=== PATIENT | male | born 1945 | race Caucasian/White ===

== ENCOUNTER 2019-07-16 13:17 | Emergency (ER) | payer MEDICARE, OTHER, SELFPAY ==
--- NOTE | ~2019-07-16 | XR_ITS ---
EXAMINATION: XR chest 2V DATE: 07/16/2019 14:51 INDICATION: Generalized weakness TECHNIQUE: AP and lateral views of the chest are obtained. COMPARISON: 08/24/2018 FINDINGS: The lungs are free of acute opacities. There is no pleural effusion or pneumothorax. The ca rdiomediastinal silhouette is normal. There is moderate thoracic spondylosis. There is a neurostimula tor device of the left anterior chest wall with its leads coursing beyond the superior margin of the radiograph. 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 IMPRESSION: 1. No acute cardiopulmonary abnormality. Reviewed, dictated and finalized at location B.
[2019-07-16 13:38] VITALS: BP 180/78; PULSE 75; RESP 15; TEMP 37; O2SAT 98
[2019-07-16 13:53] VITALS: PULSE 68
--- NOTE | 2019-07-16 13:54 | ECG_ITS ---
Measurements Intervals [place] Rate: 61 P: -12 [place]: 145 QRS: 119 QRSD: 90 T: 66 QT: 401 QTc: 406 Interpretive Statements SINUS RHYTHM DELAYED PRECORDIAL R/S TRANSITION BASELINE ARTIFACT- I, II, III, AVR, AVL, AVF, V1-V6 BORDERLINE ECG Electronically Signed On 07-16-2019 14:49:14 CDT by Christopher Valentino D.O.
[2019-07-16 14:06] VITALS: BP 147/83; PULSE 70; RESP 22; O2SAT 98
[2019-07-16 14:39] LABS: Basophils Percent Auto 0.4 % (0.2-1.2); Eosinophils Percent Auto 0.4 % (0-4.4); Hematocrit 43.2 % (42.0-52.0); Hemoglobin 14.2 g/dL (14.0-18.0); Immature Granulocyte Absolute 0.04 K/mm3 (0.00-0.031); Immature Granulocyte Percent A 0.5 % (0-0.5); Lymphocytes Absolute Auto 1.12 K/mm3 (0.9-3.2); Lymphocytes Percent Auto 13.4 % (18.3-44.2); Mean Corpuscular HGB Conc 32.9 g/dl (32-36); Mean Corpuscular Hemoglobin 29.8 pg (26-34); Mean Corpuscular Volume 90.6 fl (80-100); Mean Platelet Volume 10.1 fl (7.4-10.4); Monocytes Absolute Auto 0.5 K/mm3 (0.1-0.6); Monocytes Percent Auto 5.9 % (2.6-8.5); Neutrophils Absolute Auto 6.6 K/mm3 (1.3-6.7); Neutrophils Percent Auto 79.4 % (45.5-73.1); Platelet Count Result 202 k/mm3 (150-375); Red Blood Count 4.77 M/mm3 (4.6-6.20); Red Cell Distribution Width 13.3 % (11.5-14.5); White Blood Count 8.3 K/mm3 (4.5-10.0)
--- NOTE | 2019-07-16 14:47 | ED.GENADULT ---
HPI - General Adult General Chief complaint: Unspecified Stated complaint: ran out of medications Time Seen by Provider: 07/16/19 14:04 Source: patient Mode of arrival: ambulatory Limitations: other (patient with severe hearing impairment) History of Present Illness HPI narrative: This is a 73 year old male that presents to the ER for feeling generally unwell. [facility] and started to feel diaphoretic and not right. Reports he did not think he would be able make it to the [facility]. Reports no other symptoms. Denies fever, chest pain, shortness of breath, abdominal pain, vomiting, or dysuria. Related Data Allergies Allergy/AdvReac Type Severity Reaction Status Date / Time Ickbalv-Fdc-Xot Reductase AdvReac Unknown Muscle Verified 08/24/18 16:02 Inhibitor Spasms Review of Systems Review of Systems: Narrative: CONSTITUTIONAL: Denies fever CARDIOVASCULAR: Denies chest pain RESPIRATORY: Denies cough or dyspnea. GASTROINTESTINAL: Denies abdominal pain, nausea, vomiting GENITOURINARY: Denies dysuria or hematuria. All systems reviewed & are unremarkable except as noted in HPI and below PMFSH Past Medical History Medical History (Updated 07/16/19 @ 16:40 by Ivett Saunders PA-C) History of coronary artery disease History of depression History of diabetes mellitus History of hyperlipidemia History of hypertension History of hypothyroidism History of Parkinson's disease Surgical History Surgical History (Updated 07/16/19 @ 14:58 by Ivett Saunders PA-C) History of tonsillectomy Social History Social History (Updated 07/16/19 @ 14:59 by Ivett Saunders PA-C) Smoking status: Never smoker Exam Narrative: Exam Narrative: GENERAL: Well-appearing, well-nourished, and in no acute distress. HEAD: Normocephalic, atraumatic. EYES: PERRLA and EOMI. ENT: Nares clear, no rhinorrhea or epistaxis. Mucous membranes moist. Oropharynx without tonsillar hypertrophy exudate or other lesions. Bilateral TMs pearly arevalo non-bulging NECK: Supple. No adenopathy or masses. CHEST: Clear to auscultation. No respiratory distress. No wheezes rales or rhonchi HEART: Regular rate and rhythm. No murmur heard. Normal peripheral pulses. ABDOMEN: Soft, nontender, nondistended, normal active bowel sounds. EXTREMITIES: Normal range of motion. No edema. SKIN: Warm, dry, no rash. NEURO: No focal deficits. Alert and oriented x3. PSYCH: Normal mood and affect Course Vital Signs Vital signs: Vital Signs Temperature 98.6 F 07/16/19 13:38 Pulse Rate 75 07/16/19 13:38 Respiratory Rate 15 07/16/19 13:38 Blood Pressure 180/78 H 07/16/19 13:38 Pulse Oximetry 98 07/16/19 13:38 Temperature 98.6 F 07/16/19 13:38 Pulse Rate 100 07/16/19 16:03 Respiratory Rate 24 H 07/16/19 15:35 Blood Pressure 156/89 H 07/16/19 16:03 Pulse Oximetry 97 07/16/19 15:35 Medical Decision Making MDM Narrative Medical decision making narrative: Patient presents the emergency department for medication refill. Reports feeling unwell and sweaty in the car while trying to drive to the [place] to get his medications refilled. Otherwise has no complaints. His vitals are normal other than mild elevation in blood pressure systolic to 140s-150s. Patient is afebrile and nontoxic-appearing. CBC and metabolic panel without acute changes. Troponin is not elevated. EKG without concerning changes. Chest x-ray without acute changes. Patient refused straight cath and was unable to give us a urine sample. I was trying to get a hold of his primary doctor as he did not know what medications he needed refill. Patient does not want to wait for this and would like to leave. He was instructed on the importance of following up with his doctor to get his medicines refilled. Patient was given warnings to return to the ER Vital Signs Vital Signs: Vital Signs Temperature 98.6 F 07/16/19 13:38 Pulse Rate 75 03/
[2019-07-16 14:52] LABS: Alanine Aminotransferase 19 U/L (4-50); Albumin Level 4.3 g/dL (3.5-5.1); Alkaline Phosphatase 83 U/L (38-126); Aspartate Amino Transferase 31 U/L (17-59); Bilirubin,Total 0.4 mg/dL (0.2-1.3); Blood Urea Nitrogen 25 mg/dL (9-20); Calcium 9.2 mg/dL (8.4-10.2); Carbon Dioxide 22 mmol/L (22-30); Chloride 108 mmol/L (98-107); Estimated CRCL calculation 63 ml/min; Estimated Glomerular Filt Rate > 60; Glucose 114 mg/dL (75-110); Potassium 4.1 mmol/L (3.4-5.0); Sodium 138 mmol/L (137-145)
[2019-07-16 15:01] LABS: Prothrombin Time 12.6 Seconds (11.1-14.7)
[2019-07-16 15:02] LABS: Partial Thromboplastin Time 30.5 SECONDS (22.3-36.8)
[2019-07-16 15:03] LABS: Troponin I < 0.012 ng/mL (0.000-0.034)
[2019-07-16 15:35] VITALS: BP 132/82; PULSE 69; RESP 24; O2SAT 97
[2019-07-16 16:03] VITALS: BP 132/82; BP 144/87; BP 156/89; PULSE 100; PULSE 91; PULSE 94
--- NOTE | 2019-07-16 16:06 | PC.NURSE ---
pt unable to void, attempting to see if pt will allow straight cath
== END 2019-07-16 16:49 | disposition home or self-care (01) ==
PROVIDERS: Physician Assistant; Emergency Provider Emergency Medicine
DX: R61 Generalized hyperhidrosis (principal); I25.10 Atherosclerotic heart disease of native coronary artery without angina pectoris; E11.9 Type 2 diabetes mellitus without complications; E78.5 Hyperlipidemia, unspecified; I10 Essential (primary) hypertension; E03.9 Hypothyroidism, unspecified; G20 Parkinson's disease; R94.31 Abnormal electrocardiogram [ECG] [EKG]
CPT/HCPCS: 36415; 71046; 80053; 84484; 85025; 85610; 85730; 93005; 99284

== ENCOUNTER 2019-10-04 14:21 | Inpatient (IN) | payer OTHER, MEDICARE, SELFPAY ==
[2019-10-04] VITALS (16 sets, daily range): BP systolic 78–138; BP diastolic 56–112; PULSE 72–88; RESP 20–32; TEMP 36.3–37; O2SAT 92–100; BMI 32.4
--- NOTE | ~2019-10-04 | XR_ITS ---
EXAMINATION: XR chest 1V portable DATE: 10/04/2019 23:54 INDICATION: Abnormal lung sounds TECHNIQUE: frontal view of the chest was obtained. COMPARISON: Chest radiograph dated 07/16/2019 FINDINGS: Extensive bilateral streaky and patchy airspace opacities with perihilar and lower lung predominance. No pleural effusion or pneumothorax. Cardiomediastinal silhouette is normal. Left ventricular assist device extends cephalad along the aorta with distal tip curled near the apex of the left ventricle. Neurostimulator device projects over the left midlung zone with leads coursing cephalad along the lef t and right sides of the neck. Moderate bilateral glenohumeral osteoarthritis with right rotator cuff tear. IMPRESSION: 1. Bilateral perihilar and inferior predominant lung disease which could represent moderate pulmonary edema, pneumonia or combination thereof. Reviewed, dictated and finalized at location A. IMPRESSION: 1. Bilateral perihilar and inferior predominant lung disease which could repres ent moderate pulmonary edema, pneumonia or combination thereof.
--- NOTE | ~2019-10-04 | XR_ITS ---
EXAMINATION: XR chest 1V portable DATE: 10/06/2019 05:27 INDICATION: Pulmonary edema. TECHNIQUE: A single frontal view of the chest was obtained. COMPARISON: Chest single view 10/05/2019 FINDINGS: There is a diffuse interstitial pattern in the lungs, consistent with pulmonary edema. Ther e is mild atelectasis at left lung base. No pleural effusion or pneumothorax. The heart size is aida l. An electronic device overlies left chest with electrodes coursing into the neck. A surgical clip o verlies the mediastinum. There are old healed left rib fractures. IMPRESSION: 1. Mild pulmonary edema. 2. Mild atelectasis at left lung base. Reviewed, dictated and finalized at location A.
--- NOTE | ~2019-10-04 | XR_ITS ---
EXAMINATION: XR chest 1V portable DATE: 10/05/2019 08:15 INDICATION: Pulmonary edema. TECHNIQUE: A single frontal view of the chest was obtained on 2 radiographs. COMPARISON: Chest single view 10/04/2019 FINDINGS: There is an interstitial pattern in the lungs with interval improvement, consistent with mi ld pulmonary edema. There is mild atelectasis at left lung base. No pleural effusion or pneumothorax. The heart size is normal. There is an electronic device overlying left chest with electrodes coursin g into the neck. A left ventricular assist device is noted. IMPRESSION: 1. Mild pulmonary edema with interval improvement. 2. Mild atelectasis at left lung base. Reviewed, dictated and finalized at location A.
--- NOTE | 2019-10-04 14:21 | ED.CHESTPAIN ---
HPI - Chest Pain General Chief Complaint: Chest Pain Stated Complaint: V TACH History of Present Illness HPI narrative: Patient presents via EMS for chest pain for 1 hour. He was sitting on the toilet when he had upper left chest pain severe. They found him to be in V. Tachycardia, they started an IO in the left lower leg and started amiodarone 150 mg. The patient was hypoxic in the 80s and they started a nonrebreather of oxygen. He arrives with continuing chest pain and shortness of breath. He is very hard of hearing. He is diaphoretic. Related Data Allergies Allergy/AdvReac Type Severity Reaction Status Date / Time Liykyai-Trv-Fme Reductase AdvReac Unknown Muscle Verified 08/24/18 16:02 Inhibitor Spasms Review of Systems Review of Systems: Narrative: Unable to obtain a full review of systems due to his shortness of breath and hard of hearing. [facility] Past Medical History Medical History History of coronary artery disease History of depression History of diabetes mellitus History of hyperlipidemia History of hypertension History of hypothyroidism History of Parkinson's disease Surgical History Surgical History History of tonsillectomy Social History Social History Smoking status: Never smoker Exam Narrative: Exam Narrative: GENERAL: Well-appearing, well-nourished, and in moderate distress. With diaphoresis. Hard of hearing. HEAD: Normocephalic, atraumatic. EYES: PERRLA and EOMI. ENT: Nares clear, no rhinorrhea or epistaxis. Mucous membranes moist. NECK: Supple. CHEST: Clear to auscultation. No respiratory distress. HEART: Regular rate and rhythm. No murmur heard. Normal peripheral pulses. ABDOMEN: Soft, nontender, nondistended, normal active bowel sounds. EXTREMITIES: Normal range of motion. No edema. IO in the left tibia. SKIN: Warm, dry, no rash. NEURO: No focal deficits. Alert and oriented x3. PSYCH: Worried look. Course Consultations Consultation #1: Call Dr. Stovall for acute GA and he returned call quickly. 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 Date: 10/04/19 Time: 14:40 Consultation #2: His sister is here and she reports that he is had an GA before. He has Parkinson's with a stimulator in. He is not on blood thinners. Date: 10/04/19 Time: 14:41 Vital Signs Vital signs: Vital Signs Temperature 98.1 F 10/04/19 14:17 Pulse Rate 86 10/04/19 14:17 Respiratory Rate 32 H 10/04/19 14:17 Blood Pressure 104/69 10/04/19 14:17 Pulse Oximetry 100 10/04/19 14:17 Temperature 98.1 F 10/04/19 14:17 Pulse Rate 88 10/04/19 14:29 Respiratory Rate 32 H 10/04/19 14:17 Blood Pressure 104/69 10/04/19 14:17 Pulse Oximetry 100 10/04/19 14:30 MDM - Chest Pain MDM Narrative Medical decision making narrative: Patient appears to be having an acute GA. EKG confirms ST elevation of 8 mm in the lateral leads. Called a code STEMI. Response was quick and he was taken to the [employer] Technology In[employer]. His blood pressure was low at 76 systolic. Fluids were wide open. Zofran was given before he left but not the morphine. He was accompanied by his sister, and the put in beat adjuster. Differential Diagnosis Differential diagnosis: Likely unstable angina pectoris, atypical chest pain, st elevation myocardial infarction and chest pain Medical Records Data Attestation: I reviewed the patient's medical records. ECG Data EKG #1: Attestation: I personally reviewed and interpreted this ECG as follows: ECG completion date: 10/04/19 ECG completion time: 14:20 Prior ECG tracings: not available for review Ischemic changes: acute STEMI EKG Interpretation: tachycardia, atrial fibrillation and left axis Critical Care Time Critical Care Time Critical Care Time: Yes Total Critical Care Time: 30 Discharge Plan Discharge C
[2019-10-04] MEDS: ONDANSETRON INJ 4 MG/2 ML VIAL IV PUSH ×3 (14:49→23:24)
--- NOTE | 2019-10-04 15:58 | ECG_ITS ---
Measurements Intervals [place] Rate: 83 P: [place]: 0 QRS: 99 QRSD: 129 T: 256 QT: 436 QTc: 514 Interpretive Statements ACCELERATED JUNCTIONAL RHYTHM RIGHT AXIS DEVIATION IVCD, CONSIDER ATYPICAL LBBB MARKED ST DEPRESSION IN ANTEROLAT/INF LEADS, CONSIDER SUBENDOCARDIAL INJURY BASELINE ARTIFACT- I, II, III, AVR, AVL, AVF, V1-V6 ABNORMAL ECG Electronically Signed On 10-04-2019 17:19:37 CDT by Christopher Valentino D.O.
--- NOTE | 2019-10-04 16:26 | WPDCARDPROC ---
Cardiac Cath Procedure Note Date of procedure:: 10/04/19 Performing physician:: David Stovall MD Indication:: Acute myocardial infarction with cardiogenic shock Brief clinical history:: this is a 73-year-old patient 2 became symptomatic with chest pain in his home a short time ago. He apparently collapsed to the floor and 911 was called by a homemaker. He was found to be in sustained ventricular tachycardia was given amiodarone intravenously in the field and brought to the hospital for further evaluation. In the emergency room the patient was found to be having chest pain, he was diaphoretic and hypotensive and had intense ST segment elevation in the anterolateral leads. Procedure Procedure performed:: Emergency coronary angiography emergency revascularization( left main stent) left ventriculography placement of Impella support catheter Sedation/Medication given:: no sedation Access site:: right femoral artery Estimated blood loss:: 50 cc Procedure note:: patient was brought to the cardiac catheterization lab in the emergent setting described above. The right femoral triangle was prepped and draped in the usual fashion. Anesthesia was provided with 1% lidocaine infiltrated locally. Following this a 6 Kyr[place]z vascular sheath was placed. I utilized a 5 [place] FL4 catheter to engage inject the left coronary artery and a 5 [place] JR4 catheter to engage inject the right coronary artery. Following this PCI of the left main coronary artery was recommended and performed as detailed below. Following left main PCI a left ventriculogram was done using an angled pigtail catheter. LV hemodynamics were also documented. After this the decision was made to implant an Impella CP left ventricular assist device because of hemodynamics compatible with cardiogenic shock. The procedure was obviously challenging and very high risk but ultimately successful. He was taken to the ICU in critical condition the Impella catheter in the right femoral artery. The patient was systemically anticoagulated with Angiomax for this intervention. He received aspirin and 180 mg of Brilinta in the emergency room. Findings:: Hemodynamics: Central aortic pressure is 74/40, left ventricle 74 over 10 end-diastolic 32. No systolic gradient across the aortic valve. The left main coronary is long and 99% occluded in its distal aspect. There is trivial, inconsequential flow distal to this into the left coronary artery. The right coronary artery is moderate caliber dominant to the posterior circulation the right coronary artery is not significantly disease there are diffuse luminal plaques but no more than 10-20% stenosis. The left ventricle is dilated and severely hypodynamic. The inferior wall contracts well the remainder of the left ventricle is akinetic and the ejection fraction is 20-25% by visual estimation. There is [id number] MR angiographically. Intervention: The left main coronary coronary was engaged using a 6 Kyr[place] CLS 3.5 guiding catheter. I traversed the occluded left main into the LAD using a 0.014 pilot instructor 150 wire. I then used a 0.014 BMW wire to direct into the circumflex. Over the Manuscripts Curator wire I used the 2.5 mm emerge balloon to balloon dilate the distal left main restoring KEMAL 3 flow in the left coronary artery. At this point it was clear that the left anterior descending and circumflex were essentially non disease this was a discrete distal left main stenosis. I then elected to deploy a stent in this segment using a 3.5 x 15 mm Yamila drug-eluting stent. The circumflex ostium did have some jailing after the stent was deployed I directed the wire through the struts and balloon dilated the circumflex ostium with a 3 x 15 mm emerge balloon. Following this I used a 4.0 x 12 mm noncompliant balloon to perform high-pressure inflations in the left main stent making 2 inflations at 18 atmospheres. At the end of the procedure the left main was widely
[2019-10-04 16:31] LABS: Hematocrit 34.8 % (42.0-52.0); Hemoglobin 10.9 g/dL (14.0-18.0); Mean Corpuscular HGB Conc 31.3 g/dl (32-36); Mean Corpuscular Hemoglobin 30.1 pg (26-34); Mean Corpuscular Volume 96.1 fl (80-100); Mean Platelet Volume 9.9 fl (7.4-10.4); Platelet Count Result 195 k/mm3 (150-375); Red Blood Count 3.62 M/mm3 (4.6-6.20); Red Cell Distribution Width 13.5 % (11.5-14.5); White Blood Count 19.2 K/mm3 (4.5-10.0)
[2019-10-04] MEDS: SODIUM CHLORIDE 0.9% IV 1,000 ML 125 ML IV CONT (16:35)
[2019-10-04 16:49] LABS: Cholesterol 148 mg/dL (0-200); HDL Direct 25 mg/dL; Triglycerides 108 mg/dL (<150)
[2019-10-04 16:52] LABS: Blood Urea Nitrogen 23 mg/dL (9-20); Calcium 5.8 mg/dL (8.4-10.2); Carbon Dioxide 11 mmol/L (22-30); Chloride 116 mmol/L (98-107); Estimated CRCL calculation 77 ml/min; Estimated Glomerular Filt Rate > 60; Glucose 175 mg/dL (75-110); Potassium 2.8 mmol/L (3.4-5.0); Sodium 141 mmol/L (137-145)
--- NOTE | 2019-10-04 16:53 | PM.IMHP ---
H&P: HPI History of Present Illness Chief complaint: AMI with cardiogenic shock Narrative: Mayank Nuno is a 73 year old male a previously unknown to me presenting to the hospital emergency room short time ago from ambulance from home. The patient was in his residence apparently where he was in the restroom and started to experience significant chest pain. He collapsed onto the floor and a homemaker who was in his house found him in that situation and call 911. He was being transported to the hospital for emergency evaluation in the ambulance by report developed sustained ventricular tachycardia. That was treated with intravenous amiodarone. This apparently converted the ventricular tachycardia. In the emergency department he was found to be in distress with chest pain use diaphoretic and hypotensive. His ECG shows a very wide QRS rhythm which is difficult to interpret because of underlying baseline artifact. There was however intense anterolateral ST segment elevation. In this setting acute NE//STEMI protocol was activated and plans are for him to be brought to the cardiac catheterization lab. The patient says he is not known to have any cardiac problems before this. Brief history indicates to me that he has a history of Parkinson's disease and a history of some hypertension. His neurologist to treat his Parkinson's disease is at [facility]. He has a deep brain stimulator for this as well. Remainder of the history was not taken in this emergency situation. Review of Systems Review of Systems: ROS unobtainable: Yes unobtainable due to medical condition PMFSH Past Medical History Medical History History of coronary artery disease History of depression History of diabetes mellitus History of hyperlipidemia History of hypertension History of hypothyroidism History of Parkinson's disease Surgical History Surgical History History of tonsillectomy Social History Social History Smoking status: Never smoker Meds Home Medications and Allergies Allergies Allergy/AdvReac Type Severity Reaction Status Date / Time Nvahchc-Rcg-Chd Reductase AdvReac Unknown Muscle Verified 08/24/18 16:02 Inhibitor Spasms Vital Signs Vital Signs - 24 hr 10/04/19 14:17 10/04/19 14:29 10/04/19 14:30 Temperature 36.7 C Pulse Rate 86 88 Respiratory Rate 32 H Blood Pressure 104/69 Pulse Oximetry 100 100 10/04/19 14:49 Temperature Pulse Rate 88 Respiratory Rate 22 H Blood Pressure 78/56 L Pulse Oximetry 98 Exam Const: General: in distress and uncomfortable HENMT: Mouth: Yes dry mucous membranes Eyes: Sclera: sclerae normal Pupils: Equal, round and reactive pupils present Neck: Neck: supple Thyroid: thyroid normal Other: No obvious carotid bruits Resp: Effort & Inspection: normal respiratory effort Other: Pulmonary rales noted bilaterally Cardio: Rate: regular rate Rhythm: abnormal rhythm irregularly irregular GI: GI Palp: Yes Soft to palpation Auscultation: normal bowel sounds Skin: General skin exam: normal color Neuro: Cognition (Neuro): normal cognition Extrem: Other: No edema distal perfusion is reduced pulses are reduced and lower extremities are cool H&P: Results Labs Labs: Short CBC 10/04/19 Range/Units 16:25 WBC 19.2 H (4.5-10.0) K/mm3 Hgb 10.9 L D (14.0-18.0) g/dL Hct 34.8 L (42.0-52.0) % Plt Count 195 (150-375) k/mm3 BMP 10/04/19 16:25 Sodium 141 Potassium 2.8 L* Chloride 116 H Carbon Dioxide 11 L BUN 23 H Creatinine 0.90 Glucose 175 H Calcium 5.8 L Assessment and Plan Additional Plan 73-year-old man with acute myocardial infarction by ECG showing fairly intense anterolateral ST-elevation no previous known coronary history from what he is telling me. Patient
[2019-10-04 17:00] LABS: LDL Cholesterol Direct 105 mg/dL
[2019-10-04 17:05] LABS: Prothrombin Time > 120.0 Seconds (11.1-14.7)
[2019-10-04 17:07] LABS: Partial Thromboplastin Time > 200.0 SECONDS (22.3-36.8)
[2019-10-04 17:08] LABS: INR > 19.0
--- NOTE | 2019-10-04 17:36 | ADMGEN ---
This patient, Mayank Nuno, was admitted to Intensive Care Unit-11 on 10-04-2019 at 1613. Pt brought directly from manager lab. Patient/family oriented to hospital policies and general routines including ID bracelet, bed and alarms, visiting hours, pain management, procedures, bathroom and other care routines, personal items, smoking policy, room service/diet, and visiting hours. Valuables list has been completed. Information on how to activate the Rapid Response Team has been discussed. Patient/Family are encouraged to report perceived risks to care and to ask questions if they do not understand what they are told or what they should do.
[2019-10-04] MEDS: POTASSIUM CHLORIDE 20 MEQ PACKET (FOR LIQUID) 40 MEQ PO (19:44)
[2019-10-04 20:11] LABS: Partial Thromboplastin Time 69.7 SECONDS (22.3-36.8)
[2019-10-04 20:14] LABS: Magnesium 1.9 mg/dL (1.6-2.3)
[2019-10-04 20:33] LABS: Troponin I > 80.000 ng/mL (0.000-0.034)
[2019-10-04] MEDS: TICAGRELOR 90 MG TABLET PO (21:15)
[2019-10-04 23:28] LABS: Glucose Point of Care 184 (65-105)
[2019-10-04 23:29] LABS: Hemoglobin 14.4 g/dL (14.0-18.0); Mean Corpuscular HGB Conc 32.7 g/dl (32-36); Mean Corpuscular Hemoglobin 30.1 pg (26-34); Mean Corpuscular Volume 92.1 fl (80-100); Mean Platelet Volume 10.1 fl (7.4-10.4); Platelet Count Result 283 k/mm3 (150-375); Red Blood Count 4.78 M/mm3 (4.6-6.20); Red Cell Distribution Width 13.6 % (11.5-14.5); White Blood Count 17.8 K/mm3 (4.5-10.0)
[2019-10-04 23:40] LABS: Partial Thromboplastin Time 32.3 SECONDS (22.3-36.8)
[2019-10-05] VITALS (36 sets, daily range): BP systolic 103–143; BP diastolic 64–113; PULSE 62–88; RESP 18–30; TEMP 36.4–37.5; O2SAT 91–98
[2019-10-05] MEDS: HEPARIN SOD/D5W 100 UNITS/ML 25,000 UNITS/250 ML BAG 6.8 UNITS IV CONT (00:26)
[2019-10-05 00:33] LABS: Blood Urea Nitrogen 37 mg/dL (9-20); Carbon Dioxide 13 mmol/L (22-30); Chloride 109 mmol/L (98-107); Estimated CRCL calculation 36 ml/min; Estimated Glomerular Filt Rate 33; Glucose 196 mg/dL (75-110); Phosphorus 3.8 mg/dL (2.5-4.5); Potassium 7.2 mmol/L (3.4-5.0); Sodium 130 mmol/L (137-145)
[2019-10-05] MEDS: SODIUM BICARBONATE 8.4% 50 MEQ/50 ML VIAL 100 MEQ IV PUSH (01:36)
[2019-10-05] MEDS: FUROSEMIDE INJ 40 MG/4 ML VIAL IV PUSH (01:42)
[2019-10-05] MEDS: INSULIN HUMAN REGULAR (*BKC) 100 UNITS/ML 10 UNITS IV PUSH (01:45)
[2019-10-05] MEDS: DEXTROSE 50% 25 GM/50 ML SYRINGE IV PUSH (01:49)
[2019-10-05] MEDS: ALBUTEROL SULFATE NEB 2.5 MG/0.5 ML INH 10 MG INHALATION (01:52)
[2019-10-05 03:52] LABS: Blood Urea Nitrogen 40 mg/dL (9-20); Calcium 7.9 mg/dL (8.4-10.2); Carbon Dioxide 18 mmol/L (22-30); Chloride 110 mmol/L (98-107); Estimated CRCL calculation 35 ml/min; Estimated Glomerular Filt Rate 31; Glucose 191 mg/dL (75-110); Partial Thromboplastin Time 80.1 SECONDS (22.3-36.8); Sodium 136 mmol/L (137-145)
--- NOTE | 2019-10-05 05:11 | ECG_ITS ---
Measurements Intervals [place] Rate: 82 P: [place]: 0 QRS: -81 QRSD: 129 T: 101 QT: 392 QTc: 459 Interpretive Statements ACCELERATED JUNCTIONAL RHYTHM INCOMPLETE LEFT BUNDLE BRANCH BLOCK LEFT ANTERIOR FASCICULAR BLOCK CANNOT RULE OUT SEPTAL INFARCT, AGE INDETERMINATE ST-T WAVE ABNORMALITY IN HIGH LATERAL LEADS- CONSIDER ISCHEMIA BASELINE ARTIFACT- I, II, III, AVR, AVL, AVF ABNORMAL ECG Electronically Signed On 10-05-2019 10:34:36 CDT by Christopher Valentino D.O.
[2019-10-05 08:08] LABS: Partial Thromboplastin Time 69.4 SECONDS (22.3-36.8)
[2019-10-05] MEDS: TICAGRELOR 90 MG TABLET PO ×2 (08:20→22:11)
[2019-10-05] MEDS: ASPIRIN 81 MG CHEWABLE TABLET PO (08:20)
[2019-10-05 10:52] LABS: Activated Clotting Time 147 sec (74-137)
[2019-10-05] MEDS: LOSARTAN POTASSIUM 12.5 MG TABLET PO (10:56)
--- NOTE | 2019-10-05 11:36 | WPDCNINT ---
Assessment and Plan Assessment and plan (1) Acute NH: Qualifiers: Involved coronary artery: unspecified coronary artery Myocardial infarction type: ST elevation myocardial infarction Qualified Code(s): I21.3 - ST elevation (STEMI) myocardial infarction of unspecified site Code(s): I21.9 - Acute myocardial infarction, unspecified Status: Acute Assessment and Plan: Patient presented with sudden onset chest pain, collapsed in his bathroom, upon EMS arrival was in V-tach, was given amiodarone and brought to the ED where he was found to have anterolateral acute ST-elevation NH status post cardiac catheterization with stent placement to the left main coronary artery, EF 20-25%, LVEDP was elevated -patient was hypotensive, in cardiogenic shock, Impella was inserted. -cardiology following the patient closely and may likely remove the Impella today as patient is much more stable hemodynamically -started on aspirin, losartan, metoprolol, Brilinta (2) Cardiogenic shock: Code(s): R57.0 - Cardiogenic shock Status: Acute Assessment and Plan: With hypotension, diaphoresis with acute anterolateral ST-elevation NH with 99% occlusion of left main coronary artery status post stent placement and Impella insertion. -hemodynamically improved this morning -likely removal of Impella per cardiology (3) Hyperkalemia: Code(s): E87.5 - Hyperkalemia Status: Acute Assessment and Plan: Patient was hyperkalemic overnight, was treated with bicarb, insulin and D50, albuterol nebulizer -potassium levels down to normal this morning -continue to monitor (4) Acute kidney injury: Code(s): N17.9 - Acute kidney failure, unspecified Status: Acute Assessment and Plan: Patient with acute kidney injury could be related to cardiogenic shock, contrast induced nephropathy -received IV fluids, urine output has been adequate -continue to monitor renal function, electrolytes and urine output (5) Pulmonary edema: Qualifiers: Chronicity: acute Qualified Code(s): J81.0 - Acute pulmonary edema Code(s): J81.1 - Chronic pulmonary edema Status: Acute Assessment and Plan: Acute pulmonary edema likely related to ST elevation NH, cardiogenic shock -treated with diuretics -chest x-ray much improved this morning, will continue to monitor (6) Parkinsons disease: Code(s): G20 - Parkinson's disease Status: Acute (7) Hyperlipidemia: Code(s): E78.5 - Hyperlipidemia, unspecified Status: Acute Assessment and Plan: Cardiology will be starting statin (8) Diabetes: Code(s): E11.9 - Type 2 diabetes mellitus without complications Status: Acute Assessment and Plan: Sliding scale insulin with Accu-Cheks Additional Plan Discussed with patient updated him with his condition and plan of care. Code status: Full code Critical care time spent: 43 minutes Due to a high probability of clinically significant, life threatening deterioration, the patient required my highest level of preparedness to intervene emergently and I personally spent this critical care time directly and personally managing the patient. This critical care time included obtaining a history; examining the patient; pulse oximetry; ordering and review of studies; arranging urgent treatment with development of a management plan; evaluation of patient's response to treatment; frequent reassessment; and discussions with other providers. It was exclusive of separately billable procedures and treating other patients and teaching time. Please see Assessment and Plan section and the rest of the note for further information on patient assessment and treatment [employer] Consult Note Consult date: 10/05/19 Time Seen: 07:01 HPI: Mayank Nuno is a 73 year old male with PMH of CAD, DM, hyperlipidemia, HTN, hypothyroidism, H/o Parkinson's disease presented with sudden onset ches
[2019-10-05 11:41] LABS: Activated Clotting Time 147 sec (74-137)
--- NOTE | 2019-10-05 11:42 | P.OPB_ITS ---
Procedure Note - Brief Procedure Note - Brief Date of procedure: 10/05/19 Pre-op diagnosis: AMI with cardiogenic shock Acute coronary syndrome-ST elevation [place] complicated by cardiogenic shock Surgeon: Leon Jones MD Findings: REMOVAL OF PERCUTANEOUS LEFT VENTRICULAR ASSIST DEVICE (IMPELLA) NOTE DATE OF PROCEDURE: 10/05/2019 PROCEDURE PERFORMED: Removal of percutaneous left ventricular assist device- Impella CP (CPT CODE 90117) PROCEDURE NOTE: 73-year-old male with no known prior cardiac history was brought to [facility] yesterday with acute W[place] complicated by cardiogenic shock. He underwent primary PCI/drug-eluting stent placement of occluded left main coronary artery. Percutaneous left ventricular assist device/Impella was placed for hemodynamic support. Patient was admitted to the ICU. Yesterday evening, patient had oozing at the access site which was controlled with positioning of the sheath. Overnight, patient remained hemodynamically stable. Today, patient was chest pain-free and was hemodynamically stable. Decision was made to remove the Impella. PROCEDURE NOTE: Patient's Impella was weaned over time this morning. Systemic heparin was discontinued. Patient's ACT was checked twice, and the last ACT was 147. The sutures were removed, and the Impella catheter was turned off. The catheter was taken out of the LV cavity into the aorta up to the tip of the sheath. The catheter including the sheath was taken out together and manual pressure was used. I personally put the manual pressure for about 12 minutes, and then the nursing staff place the manual pressure for local hemostasis. Patient tolerated the removal of the Impella valve and he remained clinically and hemodynamically stable. PLAN/RECOMMENDATION: Continue to monitor in the ICU on telemetry. Monitor access site. Standard post WY/post PCI medical treatment including dual antiplatelet therapy. Patient has been initiated on low-dose beta-carmela, and ARB. He has history of questionable allergy to statin.
[2019-10-05 12:18] LABS: Glucose Point of Care 173 (65-105)
[2019-10-05 12:18] LABS: Glucose Point of Care 148 (65-105)
[2019-10-05] MEDS: GABAPENTIN 100 MG CAPSULE PO ×2 (14:30→16:21)
[2019-10-05 15:11] LABS: Hematocrit 40.4 % (42.0-52.0); Hemoglobin 13.4 g/dL (14.0-18.0); Mean Corpuscular HGB Conc 33.2 g/dl (32-36); Mean Corpuscular Hemoglobin 30.3 pg (26-34); Mean Corpuscular Volume 91.4 fl (80-100); Mean Platelet Volume 10.2 fl (7.4-10.4); Platelet Count Result 186 k/mm3 (150-375); Red Blood Count 4.42 M/mm3 (4.6-6.20); Red Cell Distribution Width 13.8 % (11.5-14.5); White Blood Count 15.7 K/mm3 (4.5-10.0)
[2019-10-05 16:07] LABS: Magnesium 1.9 mg/dL (1.6-2.3); Potassium 5.3 mmol/L (3.4-5.0)
[2019-10-05] MEDS: ZIPRASIDONE HCL 80 MG PO (16:21)
[2019-10-05 16:27] LABS: Glucose Point of Care 169 (65-105)
[2019-10-05] MEDS: METOPROLOL TARTRATE 6.25 MG TABLET PO (22:12)
[2019-10-05] MEDS: MIRTAZAPINE 7.5 MG TABLET PO (22:13)
[2019-10-05] MEDS: QUEtiapine FUMARATE 25 MG TABLET PO (22:13)
[2019-10-05 22:19] LABS: Glucose Point of Care 114 (65-105)
[2019-10-06] VITALS (17 sets, daily range): BP systolic 100–130; BP diastolic 50–76; PULSE 60–680; RESP 18–32; TEMP 36.6–37.3; O2SAT 91–97
[2019-10-06 04:55] LABS: Basophils Percent Auto 0.2 % (0.2-1.2); Hematocrit 36.5 % (42.0-52.0); Hemoglobin 12.4 g/dL (14.0-18.0); Immature Granulocyte Absolute 0.14 K/mm3 (0.00-0.031); Immature Granulocyte Percent A 0.9 % (0-0.5); Lymphocytes Absolute Auto 0.95 K/mm3 (0.9-3.2); Lymphocytes Percent Auto 5.9 % (18.3-44.2); Mean Corpuscular Hemoglobin 30.5 pg (26-34); Mean Corpuscular Volume 89.7 fl (80-100); Mean Platelet Volume 10.8 fl (7.4-10.4); Monocytes Percent Auto 5.9 % (2.6-8.5); Neutrophils Absolute Auto 13.9 K/mm3 (1.3-6.7); Neutrophils Percent Auto 87.1 % (45.5-73.1); Platelet Count Result 134 k/mm3 (150-375); Red Blood Count 4.07 M/mm3 (4.6-6.20); Red Cell Distribution Width 13.8 % (11.5-14.5)
[2019-10-06 05:09] LABS: Blood Urea Nitrogen 45 mg/dL (9-20); Calcium 8.3 mg/dL (8.4-10.2); Carbon Dioxide 23 mmol/L (22-30); Chloride 104 mmol/L (98-107); Estimated CRCL calculation 40 ml/min; Estimated Glomerular Filt Rate 37; Glucose 124 mg/dL (75-110); Magnesium 1.9 mg/dL (1.6-2.3); Phosphorus 3.6 mg/dL (2.5-4.5); Potassium 4.7 mmol/L (3.4-5.0); Sodium 133 mmol/L (137-145)
[2019-10-06] MEDS: PERFLUTREN LIPID MICROSPHERES 1.5 ML VIAL DILUTED TO 10 ML TOTAL VOLUME IV PUSH (08:06)
[2019-10-06] MEDS: FUROSEMIDE INJ 40 MG/4 ML VIAL 20 MG IV PUSH (08:30)
[2019-10-06] MEDS: ASPIRIN 81 MG CHEWABLE TABLET PO (08:30)
[2019-10-06] MEDS: GABAPENTIN 100 MG CAPSULE PO ×3 (08:30→20:15)
[2019-10-06] MEDS: TICAGRELOR 90 MG TABLET PO ×2 (08:31→20:15)
[2019-10-06] MEDS: ZIPRASIDONE HCL 80 MG PO ×2 (08:31→17:36)
[2019-10-06] MEDS: SERTRALINE HCL 50 MG TABLET 200 MG PO (08:31)
[2019-10-06] MEDS: LOSARTAN POTASSIUM 12.5 MG TABLET PO (08:31)
[2019-10-06] MEDS: METOPROLOL TARTRATE 6.25 MG TABLET PO ×2 (08:31→20:14)
[2019-10-06] MEDS: TOLTERODINE TARTRATE LA 4 MG CAP.ER.24H PO (08:31)
[2019-10-06 08:46] LABS: Glucose Point of Care 115 (65-105)
--- NOTE | 2019-10-06 09:08 | WPDINTPN ---
Progress Note: A&P Assessment and Plan (1) Acute MT: Qualifiers: Involved coronary artery: unspecified coronary artery Myocardial infarction type: ST elevation myocardial infarction Qualified Code(s): I21.3 - ST elevation (STEMI) myocardial infarction of unspecified site Code(s): I21.9 - Acute myocardial infarction, unspecified Status: Acute Assessment and Plan: Patient presented with sudden onset chest pain, collapsed in his bathroom, upon EMS arrival was in V-tach, was given amiodarone and brought to the ED where he was found to have anterolateral acute ST-elevation MT status post cardiac catheterization with stent placement to the left main coronary artery, EF 20-25%, LVEDP was elevated. patient was hypotensive, in cardiogenic shock, Impella was inserted. - IMPELLA was removed on 10/05/2019 -cardiology following the patient closely - continue on aspirin, losartan, metoprolol, Brilinta (2) Cardiogenic shock: Code(s): R57.0 - Cardiogenic shock Status: Acute Assessment and Plan: RESOLVED Hypotension, diaphoresis with acute anterolateral ST-elevation MT with 99% occlusion of left main coronary artery status post stent placement and Impella insertion on admission - Impella was removed on 10/05/2019 -hemodynamically improved this morning (3) Hyperkalemia: Code(s): E87.5 - Hyperkalemia Status: Acute Assessment and Plan: RESOLVED - Patient was hyperkalemic overnight, was treated with bicarb, insulin and D50, albuterol nebulizer -potassium levels down to normal this morning -continue to monitor (4) Acute kidney injury: Code(s): N17.9 - Acute kidney failure, unspecified Status: Acute Assessment and Plan: Patient with acute kidney injury could be related to cardiogenic shock, contrast induced nephropathy -creatinine gradually trending down -continue to monitor renal function, electrolytes and urine output (5) Pulmonary edema: Qualifiers: Chronicity: acute Qualified Code(s): J81.0 - Acute pulmonary edema Code(s): J81.1 - Chronic pulmonary edema Status: Acute Assessment and Plan: Acute pulmonary edema likely related to ST elevation MT, cardiogenic shock -chest x-ray with mild plmonary edema - Lasix 20 mg Iv x1 ordered (6) Parkinsons disease: Code(s): G20 - Parkinson's disease Status: Acute (7) Hyperlipidemia: Qualifiers: Hyperlipidemia type: unspecified Qualified Code(s): E78.5 - Hyperlipidemia, unspecified Code(s): E78.5 - Hyperlipidemia, unspecified Status: Acute Assessment and Plan: Cardiology will be starting statin (8) Diabetes: Qualifiers: Diabetes mellitus type: type 2 Diabetes mellitus complication status: without complication 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 He is aware that he will be receiving small dose of lasix Code status: Full code Critical care time spent: 33 minutes Due to a high probability of clinically significant, life threatening deterioration, the patient required my highest level of preparedness to intervene emergently and I personally spent this critical care time directly and personally managing the patient. This critical care time included obtaining a history; examining the patient; pulse oximetry; ordering and review of studies; arranging urgent treatment with development of a management plan; evaluation of patient's response to treatment; frequent reassessment; and discussions with other providers. It was exclusive of separately billable procedures and treating other patients and t
--- NOTE | 2019-10-06 10:00 | ECHO_ITS ---
Patient Info Name: Mayank Nuno Age: 73 years : 1945 Gender: Male Ht: 70 in Wt: 224 lbs BSA: 2.27 m2 HR: 61 bpm BP: 120 / 70 mmHg Heart Rhythm: Sinus Rhythm Technical Quality: Good Exam Date: 10/06/2019 7:31 AM Exam Location: [facility] Patient Status: Inpatient Admit Date: 10/04/2019 Staff Ordering Physician: Lacey Morales APRN Director Social: Kirby Chilel, DANNA, RT Attending Provider: David Stovall MD Referring Physician: Andrew EM; Exam Type: CA echo dop color flow w con Study Info Indications I50.9 - Heart failure, unspecified Complete two-dimensional, color flow and Doppler transthoracic echocardiogram is performed with contrast to opacify the left ventricle and to improve the deliniation of the left ventricle endocardial borders. Summary 1. Left ventricular systolic function is severely reduced, estimated at 30%. 2. There is moderately increased left ventricular wall thickness. 3. Akinesis of the apex, apical anterior, apical septal, apical lateral, mid anterior burgess. 4. Severe hypokinesis of the mid anteroseptal and mid anterolateral wall. 5. There is no thrombus visualized in the left ventricle. 6. The left ventricular diastolic function is grade II diastolic dysfunction. 7. There is mild mitral valve regurgitation. 8. Severe pulmonary hypertension, estimated pulmonary arterial systolic pressure is 71 mmHg. Left Ventricle Left ventricular chamber dimension is normal. Left ventricular systolic function is severely reduced, estimated at 30%. There is moderately increased left ventricular wall thickness. The left ventricular diastolic function is grade II diastolic dysfunction. There is no thrombus visualized in the left ventricle. Global longitudinal strain is severely elevated at -7 %. Akinesis of the apex, apical anterior, apical septal, apical lateral, mid anterior burgess. Severe hypokinesis of the mid anteroseptal and mid anterolateral wall. Right Ventricle Right ventricular chamber dimension is normal. Right ventricular systolic function is normal. Left Atria Left atrial chamber dimension is normal. Right Atria Right atrial chamber dimension is normal. Aortic Valve The aortic valve is not well visualized. There is mild aortic valve sclerosis. There is no aortic valve stenosis. There is mild aortic valve regurgitation. Pulmonic Valve The pulmonic valve is not well visualized. There is mild pulmonic regurgitation. Mitral Valve The mitral valve has normal leaflets. There is mild mitral valve regurgitation. The mitral valve annulus is mildly calcified. Tricuspid Valve The tricuspid valve leaflets are normal. There is mild tricuspid valve regurgitation. Severe pulmonary hypertension, estimated pulmonary arterial systolic pressure is 71 mmHg. Pericardium/Pleural The pericardium appears not well visualized. Inferior Vena Cava Dilated inferior vena cava with no collapse upon inspiration consistent with significantly elevated right atrial pressure, 15 mmHg. Aorta The aortic root size at the sinus of Valsalva is normal. Left Ventricular Outflow Tract Name Value Normal LVOT 2D LVOT Diameter 2.11 cm LVOT Doppler
--- NOTE | 2019-10-06 10:53 | PM.PNCARD ---
Progress Note: A&P Assessment and Plan (1) Acute AR: Qualifiers: Involved coronary artery: unspecified coronary artery Myocardial infarction type: ST elevation myocardial infarction Qualified Code(s): I21.3 - ST elevation (STEMI) myocardial infarction of unspecified site Code(s): I21.9 - Acute myocardial infarction, unspecified Status: Acute Assessment and Plan: Hemodynamically stable. Doing well post Impella removal or acute STEMI and left main intervention. Continue dual antiplatelet therapy. DVT prophylaxis. Bedside incentive spirometer. Physical therapy/occupational therapy. 2D echocardiogram pending. Will review when available. Transfer to IMU today. (2) Cardiogenic shock: Code(s): R57.0 - Cardiogenic shock Status: Acute Assessment and Plan: Resolved. Continue beta-carmela, ARB. (3) Pulmonary edema: Qualifiers: Chronicity: acute Qualified Code(s): J81.0 - Acute pulmonary edema Code(s): J81.1 - Chronic pulmonary edema Status: Acute Assessment and Plan: More prominent this morning on chest x-ray with dyspnea. IV Lasix administered. Monitor input and output, daily weight. (4) Hyperlipidemia: Qualifiers: Hyperlipidemia type: unspecified Qualified Code(s): E78.5 - Hyperlipidemia, unspecified Code(s): E78.5 - Hyperlipidemia, unspecified Status: Acute Assessment and Plan: Statin. 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 (6) Acute kidney injury: Code(s): N17.9 - Acute kidney failure, unspecified Status: Acute Assessment and Plan: Stable, slightly improving. Continue to monitor closely. BMP in a.m.. Subjective Date/time seen: Date of service: 10/06/19 10:53 Follow-up for ST-elevation AR with left main occlusion status post left main intervention/stent, ischemic cardiomyopathy, cardiogenic shock Interval history: He is more short of breath this morning, tachypnea noted. IV Lasix 20 mg administered by critical care this a.m.. Chest x-ray consistent with pulmonary vascular congestion. Hemodynamically stable, denies chest pain or palpitations. Brief nonsustained VT yesterday afternoon no recurrence. States overall he feels much better since admission. Impella catheter removed yesterday without complication. Review of Systems Review of Systems: All systems reviewed & are unremarkable except as noted in HPI and below ROS unobtainable: Yes unobtainable due to medical condition Constitutional: Constitutional: Reports as per HPI and Reports no additional constitutional complaints Eyes: Eyes: Reports as per HPI and Reports no additional eye complaints ENT: Reports system reviewed and no additional complaints, except as documented and Reports as per HPI Cardiovascular: Cardiovascular: Reports as per HPI and Reports no additional cardiovascular complaints Respiratory: Respiratory: Reports as per HPI and Reports no additional respiratory complaints Gastrointestinal: Gastrointestinal: Reports as per HPI and Reports no additional gastrointestinal complaints Genitourinary: Genitourinary: Reports no additional male genitourinary complaints and Reports as per HPI Musculoskeletal: Musculoskeletal: Reports no additional musculoskeletal complaints and Reports as per HPI Integumentary/Breasts: Skin/Breast: Reports system reviewed and no additional complaints, except as docu and Reports as per HPI Neurologic: Reports system reviewed and no additional complaints, except as documented and Reports as per HPI Psychiatric: Psychia
[2019-10-06 12:13] LABS: Glucose Point of Care 121 (65-105)
[2019-10-06 16:59] LABS: Glucose Point of Care 117 (65-105)
[2019-10-06 16:59] LABS: Glucose Point of Care 105 (65-105)
[2019-10-06] MEDS: QUEtiapine FUMARATE 25 MG TABLET PO (20:14)
[2019-10-06] MEDS: MIRTAZAPINE 7.5 MG TABLET PO (20:15)
[2019-10-06 20:22] LABS: Glucose Point of Care 121 (65-105)
[2019-10-07] VITALS (16 sets, daily range): BP systolic 97–144; BP diastolic 54–104; PULSE 60–72; RESP 18–32; TEMP 35.8–37; O2SAT 94–100
[2019-10-07 07:39] LABS: Glucose Point of Care 105 (65-105)
[2019-10-07] MEDS: TOLTERODINE TARTRATE LA 4 MG CAP.ER.24H PO (08:31)
[2019-10-07] MEDS: TICAGRELOR 90 MG TABLET PO ×2 (08:31→20:06)
[2019-10-07] MEDS: ASPIRIN 81 MG CHEWABLE TABLET PO (08:31)
[2019-10-07] MEDS: METOPROLOL TARTRATE 6.25 MG TABLET PO ×2 (08:31→20:06)
[2019-10-07] MEDS: LOSARTAN POTASSIUM 12.5 MG TABLET PO (08:31)
[2019-10-07] MEDS: SERTRALINE HCL 50 MG TABLET 200 MG PO (08:32)
[2019-10-07] MEDS: GABAPENTIN 100 MG CAPSULE PO ×3 (08:32→17:10)
[2019-10-07] MEDS: ZIPRASIDONE HCL 80 MG PO ×2 (08:33→17:09)
--- NOTE | 2019-10-07 11:05 | PC.NURSE ---
Patient transferred to room 232 via wheelchair on 10/07/2019 at 1108. Assumed care from ANTONIO Ross this AM. Belongings brought with patient. Belongings list signed.
[2019-10-07 13:10] LABS: Glucose Point of Care 94 (65-105)
[2019-10-07 15:19] LABS: Hematocrit 37.9 % (42.0-52.0); Hemoglobin 12.3 g/dL (14.0-18.0); Mean Corpuscular HGB Conc 32.5 g/dl (32-36); Mean Corpuscular Hemoglobin 30.5 pg (26-34); Mean Platelet Volume 10.9 fl (7.4-10.4); Platelet Count Result 125 k/mm3 (150-375); Red Blood Count 4.03 M/mm3 (4.6-6.20); Red Cell Distribution Width 13.4 % (11.5-14.5); White Blood Count 13.2 K/mm3 (4.5-10.0)
[2019-10-07 15:30] LABS: Blood Urea Nitrogen 40 mg/dL (9-20); Carbon Dioxide 26 mmol/L (22-30); Chloride 101 mmol/L (98-107); Estimated CRCL calculation 50 ml/min; Estimated Glomerular Filt Rate 50; Glucose 94 mg/dL (75-110); Potassium 3.8 mmol/L (3.4-5.0); Sodium 134 mmol/L (137-145)
--- NOTE | 2019-10-07 16:18 | PM.PNCARD ---
Progress Note: A&P Assessment and Plan (1) Acute DC: Qualifiers: Involved coronary artery: unspecified coronary artery Myocardial infarction type: ST elevation myocardial infarction Qualified Code(s): I21.3 - ST elevation (STEMI) myocardial infarction of unspecified site Code(s): I21.9 - Acute myocardial infarction, unspecified Status: Acute Assessment and Plan: Post Impella removal for acute STEMI and left main intervention. Hemodynamically stable. Blood pressure soft. Continue dual antiplatelet therapy. DVT prophylaxis. Bedside incentive spirometer. Physical therapy/occupational therapy. Echo 10/06/2019 :1. Left ventricular systolic function is severely reduced, estimated at 30%. 2. There is moderately increased left ventricular wall thickness. 3. Akinesis of the apex, apical anterior, apical septal, apical lateral, mid anterior burgess. 4. Severe hypokinesis of the mid anteroseptal and mid anterolateral wall. 5. There is no thrombus visualized in the left ventricle. 6. The left ventricular diastolic function is grade II diastolic dysfunction. 7. There is mild mitral valve regurgitation. 8. Severe pulmonary hypertension, estimated pulmonary arterial systolic pressure is 71 mmHg. (2) Cardiogenic shock: Code(s): R57.0 - Cardiogenic shock Status: Acute Assessment and Plan: Resolved. Continue beta-carmela, ARB. Is on very very low doses of beta-carmela and ARB. Unable to titrate up due to soft blood pressure. (3) Pulmonary edema: Qualifiers: Chronicity: acute Qualified Code(s): J81.0 - Acute pulmonary edema Code(s): J81.1 - Chronic pulmonary edema Status: Acute Assessment and Plan: Diuresed well yesterday. Lungs are clear today. He is on room air. Still complains of some slight shortness of breath but not when he had activity. (4) Hyperlipidemia: Qualifiers: Hyperlipidemia type: unspecified Qualified Code(s): E78.5 - Hyperlipidemia, unspecified Code(s): E78.5 - Hyperlipidemia, unspecified Status: Acute Assessment and Plan: Will initiate rosuvastatin at 20 mg today. LDL was 105 (5) Diabetes: Qualifiers: Diabetes mellitus type: type 2 Diabetes mellitus shelter insulin use: without shelter use Diabetes mellitus complication status: without complication Qualified Code(s): E11.9 - Type 2 diabetes mellitus without complications Code(s): E11.9 - Type 2 diabetes mellitus without complications Status: Acute Assessment and Plan: Continue current therapy. (6) Acute kidney injury: Code(s): N17.9 - Acute kidney failure, unspecified Status: Acute Assessment and Plan: Continues to improve. BMP in the morning. Additional Plan Continue PT/OT. He states that he lives by himself. He still drives. Has been eating ice cream and debris does as well as [address] [place] [address] [place] [employer] and fries. He states he does drive to [place] an uses the motorized cart to do grocery shopping. 45 minutes conversation with his sister, Brie along with her , regarding: How he is physically doing at this time. Walked physical therapy to the bathroom. Renal function is improving. Echocardiogram revealed ejection fraction 30% with significant wall motion abnormality due to his DC. Soft blood pressure and inability to adjust medications aggressively. At this time his prognosis is guarded. With ejection fraction of 30% of course he is at risk for sudden cardiac . I do not think he is a good candidate for Life Vest due to his memory and inabili
[2019-10-07 16:59] LABS: Glucose Point of Care 118 (65-105)
--- NOTE | 2019-10-07 17:05 | PC.NURSE ---
Late entry - On 10/04/2019, I assessed the patient's Impella site at 18:15 and found the gauze dressing to be fully saturated with blood and blood to be leaking out around the tegaderm dressing in place over the site from his procedure. I immediately applied pressure to the groin site and called Orville Orozco RN for assistance. I continued to hold pressure while calling Dr. Stovall, [place], as he had placed the device. Dr. Stovall did not answer and I called Dr. Jones, [place] Helper. Dr. Jones did not answer and I then called Dr. Chandra. Dr. Chandra did not answer and I then called Donnell with [facility] who stated to continue holding pressure and he would come in to the hospital. While I was calling physicians, ANTONIO Mccabe called to [facility] to have a automobile washer steam come down. ANTONIO Valderrama came to bedside and she also tried to call Dr. Stovall, Dr. Jones and Dr. Chandra to inform them of the bleeding at the insertion site and request assistance. I checked the groin site for hemostasis and the site continued to bleed so pressure was reapplied. Donnell with [facility] arrived to the hospital and called Dr. Stovall and Dr. Jones regarding the continued bleeding at the Impella insertion site. He was unable to get ahold of either physician. Pressure was held for approximately [address] Jones called back and was informed of the bleeding at the site. Sutures were placed. The site was redressed. A ramirez catheter was placed. The site had minor bleeding after the new dressing was placed and the drainage was outlined. The site remained intact with no further bleeding from that point for the remainder of my shift.
[2019-10-07] MEDS: QUEtiapine FUMARATE 25 MG TABLET PO (20:06)
[2019-10-07] MEDS: MIRTAZAPINE 7.5 MG TABLET PO (20:06)
[2019-10-07 21:03] LABS: Glucose Point of Care 98 (65-105)
[2019-10-08] VITALS (20 sets, daily range): BP systolic 97–123; BP diastolic 46–70; PULSE 57–85; RESP 18–34; TEMP 35.8–37.7; O2SAT 93–99
[2019-10-08 04:49] LABS: Hematocrit 32.8 % (42.0-52.0); Hemoglobin 11.1 g/dL (14.0-18.0); Mean Corpuscular HGB Conc 33.8 g/dl (32-36); Mean Corpuscular Hemoglobin 30.7 pg (26-34); Mean Corpuscular Volume 90.6 fl (80-100); Mean Platelet Volume 10.9 fl (7.4-10.4); Platelet Count Result 111 k/mm3 (150-375); Red Blood Count 3.62 M/mm3 (4.6-6.20); Red Cell Distribution Width 13.2 % (11.5-14.5)
[2019-10-08 05:04] LABS: Blood Urea Nitrogen 37 mg/dL (9-20); Calcium 7.8 mg/dL (8.4-10.2); Carbon Dioxide 27 mmol/L (22-30); Chloride 103 mmol/L (98-107); Estimated CRCL calculation 59 ml/min; Estimated Glomerular Filt Rate 60; Glucose 106 mg/dL (75-110); Potassium 3.8 mmol/L (3.4-5.0); Sodium 134 mmol/L (137-145)
[2019-10-08 08:27] LABS: Glucose Point of Care 102 (65-105)
[2019-10-08] MEDS: SERTRALINE HCL 50 MG TABLET 200 MG PO (10:06)
[2019-10-08] MEDS: GABAPENTIN 100 MG CAPSULE PO ×3 (10:06→17:54)
[2019-10-08] MEDS: TICAGRELOR 90 MG TABLET PO ×2 (10:06→21:38)
[2019-10-08] MEDS: TOLTERODINE TARTRATE LA 4 MG CAP.ER.24H PO (10:06)
[2019-10-08] MEDS: LOSARTAN POTASSIUM 12.5 MG TABLET PO (10:06)
[2019-10-08] MEDS: METOPROLOL TARTRATE 6.25 MG TABLET PO (10:07)
[2019-10-08] MEDS: ZIPRASIDONE HCL 80 MG PO ×2 (10:07→17:54)
[2019-10-08] MEDS: ASPIRIN 81 MG CHEWABLE TABLET PO (10:07)
[2019-10-08 11:51] LABS: Glucose Point of Care 92 (65-105)
--- NOTE | 2019-10-08 12:48 | PM.PNCARD ---
Progress Note: A&P Assessment and Plan (1) Cardiogenic shock: Code(s): R57.0 - Cardiogenic shock Status: Acute Assessment and Plan: Resolved. Low dose beta-carmela and ARB. Unable to titrate up due to soft blood pressure. (2) Pulmonary edema: Qualifiers: Chronicity: acute Qualified Code(s): J81.0 - Acute pulmonary edema Code(s): J81.1 - Chronic pulmonary edema Status: Acute Assessment and Plan: Lungs are clear. He is on room air. Still complains of some slight shortness. Explained with his weak heart muscle he may always have some slight shortness of breath. Must limit his fluid intake to 2 L (68 oz) per day. Additional Plan Continue PT/OT. Has been swabbed for COVID in anticipation of discharge to SNF. Stable for discharge when bed is available. Continue monitoring in IMU. Discharge instructions as well as medications have been entered in anticipation of discharge over the weekend. Plan discussed with Dr Corazon Cordon 10/08/2019. Subjective Date/time seen: 10/08/19 12:48 Interval history: Follow-up for: STEMI status post stent to left main, status post Impella, LV systolic dysfunction as a result of the NH, acute renal failure, diabetes, Parkinson's Date of service: 10/08/2019 Subjective: Up in chair. Denied chest discomfort. No lightheadedness or palpitations. States sometimes get short of breath but has been given breathing tips to take in slow breasts and exhale slowly. Review of Systems Constitutional: Constitutional: Denies chills and Denies fatigue Eyes: Eyes: Denies blurry vision ENT: Denies dizziness and Reports hearing loss Cardiovascular: Cardiovascular: Denies chest pain, Denies rapid heart rate and Reports dyspnea (As above) Respiratory: Respiratory: Denies cough and Reports dyspnea (As above) Gastrointestinal: Gastrointestinal: Reports as per HPI and Denies abdominal pain Genitourinary: Genitourinary: Denies hematuria Musculoskeletal: Musculoskeletal: Reports abnormal gait (Related to Parkinson's) Integumentary/Breasts: Skin/Breast: Reports as per HPI, Denies erythema and Denies rash Neurologic: Reports abnormal gait (Related to Parkinson's) and Denies dizziness Psychiatric: Psychiatric: Denies anxiety Endocrine: Endocrine: Denies fatigue and Reports heat intolerance Hematologic/Lymphatic: Hematologic/Lymphatic: Reports easy bruising Allergic/Immunologic: Allergic/Immunologic: Denies wheezing Exam Const: General: cooperative, comfortable, no acute distress, well developed, alert and awake Nutritional Appearance: overweight Orientation/consciousness: patient oriented x3 HENMT: Mouth: Yes dry mucous membranes Eyes: Sclera: sclerae normal Pupils: Equal, round and reactive pupils present Neck: Neck: trachea midline and supple Resp: Effort & Inspection: normal respiratory effort and able to speak in complete sentences Auscultation: no wheezes and diminished lung sounds on the left in the lower lung justice Cardio: Rate: regular rate Rhythm: regular rhythm Heart sounds: S1 normal heart sound present and S2 normal heart sound present Peripheral pulses: Peripheral pulses 2+ throughout GI: Auscultation: normal bowel sounds Skin: General skin exam: normal color Neuro: General: patient oriented x3 Cranial nerves: Yes Equal, round and reactive pupils present Cognition (Neuro): normal cognition Speech: normal speech Extrem: General: normal to inspection, no cyanosis and no edema Other: l Psych: Appearance: grossly normal Mental Status: mental status grossly normal Speech and movement: Normal speech and movement present Affect: normal affect Attitude: cooperative Insight: Good insight present (Psych) Judgement: Good judgement present (Psych) Objective Data Vital Signs Vital Signs: Vital Signs - 24 hr 10/07/19 13:05 10/07/19 14:00 10/07/19 16:00 [facility]
[2019-10-08 16:39] LABS: Glucose Point of Care 94 (65-105)
[2019-10-08 17:52] LABS: SARS-CoV-2 RNA PCR Negative
[2019-10-08 21:10] LABS: Glucose Point of Care 119 (65-105)
[2019-10-08] MEDS: QUEtiapine FUMARATE 25 MG TABLET PO (21:38)
[2019-10-08] MEDS: MIRTAZAPINE 7.5 MG TABLET PO (21:38)
[2019-10-09] VITALS (11 sets, daily range): BP systolic 102–113; BP diastolic 45–61; PULSE 61–84; RESP 20–26; TEMP 35.7–37.1; O2SAT 95–98
[2019-10-09 05:13] LABS: Hematocrit 32.4 % (42.0-52.0); Hemoglobin 10.8 g/dL (14.0-18.0); Mean Corpuscular HGB Conc 33.3 g/dl (32-36); Mean Corpuscular Hemoglobin 30.6 pg (26-34); Mean Corpuscular Volume 91.8 fl (80-100); Mean Platelet Volume 10.8 fl (7.4-10.4); Platelet Count Result 129 k/mm3 (150-375); Red Blood Count 3.53 M/mm3 (4.6-6.20); Red Cell Distribution Width 13.2 % (11.5-14.5); White Blood Count 8.7 K/mm3 (4.5-10.0)
[2019-10-09 05:32] LABS: Potassium 3.8 mmol/L (3.4-5.0)
[2019-10-09 05:48] LABS: Blood Urea Nitrogen 34 mg/dL (9-20); Calcium 7.9 mg/dL (8.4-10.2); Carbon Dioxide 25 mmol/L (22-30); Chloride 105 mmol/L (98-107); Estimated CRCL calculation 65 ml/min; Estimated Glomerular Filt Rate > 60; Glucose 119 mg/dL (75-110); Sodium 135 mmol/L (137-145)
[2019-10-09 08:22] LABS: Glucose Point of Care 99 (65-105)
[2019-10-09] MEDS: METOPROLOL SUCCINATE EXT REL 12.5 MG TABCR PO (08:29)
[2019-10-09] MEDS: SERTRALINE HCL 50 MG TABLET 200 MG PO (08:29)
[2019-10-09] MEDS: ASPIRIN 81 MG CHEWABLE TABLET PO (08:30)
[2019-10-09] MEDS: GABAPENTIN 100 MG CAPSULE PO ×2 (08:30→12:50)
[2019-10-09] MEDS: TICAGRELOR 90 MG TABLET PO (08:30)
[2019-10-09] MEDS: LOSARTAN POTASSIUM 12.5 MG TABLET PO (08:30)
[2019-10-09] MEDS: TOLTERODINE TARTRATE LA 4 MG CAP.ER.24H PO (08:30)
[2019-10-09] MEDS: ZIPRASIDONE HCL 80 MG PO (08:30)
--- NOTE | 2019-10-09 10:01 | PM.DS ---
DS: Admitting Diagnosis Admitting Diagnosis Admitting Diagnosis: ST elevation (STEMI) myocardial infarction of unspecified site DS: Discharge Diagnosis Discharge Diagnosis (1) Acute VA: Qualifiers: Involved coronary artery: unspecified coronary artery Myocardial infarction type: ST elevation myocardial infarction Qualified Code(s): I21.3 - ST elevation (STEMI) myocardial infarction of unspecified site Code(s): I21.9 - Acute myocardial infarction, unspecified Status: Acute (2) Atrial fibrillation with rapid ventricular response: Code(s): I48.91 - Unspecified atrial fibrillation Status: Acute (3) Pulmonary edema: Qualifiers: Chronicity: acute Qualified Code(s): J81.0 - Acute pulmonary edema Code(s): J81.1 - Chronic pulmonary edema Status: Acute (4) Cardiogenic shock: Code(s): R57.0 - Cardiogenic shock Status: Acute (5) Acute kidney injury: Code(s): N17.9 - Acute kidney failure, unspecified Status: Acute DS: Summary Hospital Course Reason for hospitalization: STEMI Hospital Course: Patient presnted with STEMI anterolateral wall complicated with cardiogenic shock. S/p PCI to left main with MCKENZIE and Impella. Hospital course was complicated with YISEL that resolved annd acute heart failure with reduced EF 30% that improved. His hemeodynamic status conitnued to improve and impella relmoved with no complications. He is weak and need assistance and his discharge was pending for COVID test that came back negative. He will be transferred to [facility] with f/u with cardiology. Status at Discharge Functional status at discharge: wheelchair bound Overall status at discharge: patient is not back to baseline Time Spent with Patient Time attestation: Total time spent providing and/or coordinating discharge services: Time spent: Greater than 30 minutes Exam Const: General: no acute distress Limitations: no limitations Eyes: General: appearance normal, both eyes and all related structures Sclera: sclerae normal Neck: Neck: supple and no JVD Carotids: no bruits Resp: Effort & Inspection: normal respiratory effort Auscultation: clear to auscultation bilaterally Cardio: Rate: regular rate Rhythm: regular rhythm Heart sounds: no gallops and no murmurs GI: GI Palp: Yes Soft to palpation and No Tenderness to palpation present (GI) Extrem: Right lower extremity: no edema Left lower extremity: no edema Psych: Mental Status: mental status grossly normal Affect: normal affect DS: Data Data Completed and Pending Labs on day of discharge: Labs from last 24 hours 10/09/19 10/09/19 10/09/19 08:01 04:59 04:59 WBC 8.7 RBC 3.53 L Hgb 10.8 L Hct 32.4 L MCV 91.8 MCH 30.6 MCHC 33.3 RDW 13.2 Plt Count 129 L MPV 10.8 H Sodium 135 L Potassium 3.8 Chloride 105 Carbon Dioxide 25 BUN 34 H Creatinine 1.10 Estim Creat Clear Calc 65 Estimated GFR > 60 Glucose 119 H POC Capillary Glucose 99 Calcium 7.9 L SARS-CoV-2 RNA (RT-PCR) 10/08/19 10/08/19 10/08/19 21:05 16:36 11:31 WBC RBC Hgb Hct MCV MCH MCHC RDW Plt Count MPV Sodium Potassium Chloride Carbon Dioxide BUN Creatinine Estim Creat Clear Calc Estimated GFR Glucose POC Capillary Glucose 119 H 94 92 Calcium SARS-CoV-2 RNA (RT-PCR) 10/08/19 11:30 WBC RBC Hgb Hct MCV MCH MCHC RDW Plt Count MPV Sodium Potassium Chloride Carbon Dioxide BUN Creatinine Estim Creat Clear Calc Estimated GFR Glucose POC Capillary Glucose Calcium SARS-CoV-2 RNA (RT-PCR) Negative Discharge Plan Discharge Consulting providers: Erich Rodriguez Discharging Clinician: Cristhian Lam Patient Disposition: SNF Activity: other - see discharge instructions Diet: low sodium and other - see discharge instruction
[2019-10-09 12:38] LABS: Glucose Point of Care 112 (65-105)
--- NOTE | 2019-10-09 15:25 | PCPTNOTE ---
Attempted Therapy session. Pt declined treatment due to being D/C'd. He stated I would rather due therapy when I get over there.
== END 2019-10-09 16:30 | DRG 215 ==
LOC: ANHED 14:29 → ANHICU 14:48 → ANHIMU 10-08 13:13 → ANHICU 10-11 10:42 → ANHIMU 10-11 10:42
PROVIDERS: Internal Medicine; Nurse Practitioner Adult Health; Admitting Provider Specialist; Emergency Provider Emergency Medicine; PCP Family Medicine; Visit Provider Internal Medicine Interventional Cardiology
PROC: 4A023N7 Measurement of Cardiac Sampling and Pressure, Left Heart, Percutaneous Approach (ICD-10-PCS; CPT 93452; principal; 2019-10-04 14:45)
PROC: 02HA3RZ Insertion of Short-term External Heart Assist System into Heart, Percutaneous Approach (ICD-10-PCS; 2019-10-04 14:45)
PROC: 02HA3RZ Insertion of Short-term External Heart Assist System into Heart, Percutaneous Approach (ICD-10-PCS; CPT 33979; 2019-10-04 14:45)
DX: I21.09 ST elevation (STEMI) myocardial infarction involving other coronary artery of anterior wall (principal); R57.0 Cardiogenic shock; J81.0 Acute pulmonary edema; I47.2 Ventricular tachycardia; N17.9 Acute kidney failure, unspecified; E87.5 Hyperkalemia; I50.9 Heart failure, unspecified; Z11.59 Encounter for screening for other viral diseases; I48.91 Unspecified atrial fibrillation; I25.10 Atherosclerotic heart disease of native coronary artery without angina pectoris; E78.5 Hyperlipidemia, unspecified; E03.9 Hypothyroidism, unspecified; G20 Parkinson's disease; I10 Essential (primary) hypertension; E11.9 Type 2 diabetes mellitus without complications; F32.9 Major depressive disorder, single episode, unspecified
CPT/HCPCS: 33990; 36415; 71045; 80048; 80061; 83735; 84100; 84132; 84484; 85025; 85027; 85610; 85730; 87635; 93005; 93458; 94640; 96374; 96375; 97110; 97161; 97165; 97530; 97535; 99285; A9270; C1725; C1769; C1874; C1887; C1894; C8929; C9606; C9803; J0583; J1644; J1815; J1940; J2250; J2405; J3010; J3480; J7030; J7040; J7060; Q9957; U0003

== ENCOUNTER 2019-10-22 03:10 | Inpatient (IN) | payer MEDICARE, OTHER, SELFPAY ==
[2019-10-22] VITALS (24 sets, daily range): BP systolic 98–151; BP diastolic 59–79; PULSE 68–86; RESP 15–41; TEMP 35.9–36.9; O2SAT 91–97; BMI 28.8
--- NOTE | ~2019-10-22 | XR_ITS ---
XR chest ET placement 10/26/2019 19:26 Indication: Respiratory distress. Endotracheal tube placement. Procedure: AP portable chest Comparison: Comparison to multiple prior studies sequentially, with oldest reviewed study dated 06/2019. Findings: There has been rapid progression of diffuse bilateral airspace disease. Endotracheal tube t ip 3.3 cm above the oniel. NG tube in the stomach. Cardiomegaly. No pneumothorax. Impression: 1: Rapid progression of diffuse bilateral airspace disease which may represent a combination of edema and/or pneumonia. Reviewed, dictated and finalized at location A. Impression: 1: Rapid progression of diffuse bilateral airspace disease which may represent a combination of edema and/or pneumonia.
--- NOTE | ~2019-10-22 | XR_ITS ---
EXAMINATION: XR chest 2V DATE: 10/25/2019 13:21 INDICATION: Lung infiltrates. Follow-up. TECHNIQUE: Frontal and lateral views of the chest were obtained. COMPARISON: Chest 2 views 10/22/2019 FINDINGS: There is volume loss of left hemithorax. There are airspace opacities in right perihilar re gion and in the left mid and lower lung zones. There are airspace opacities in perihilar left upper l obe. There is a small left pleural effusion. No pneumothorax. The heart size is normal. An electronic device overlies left chest with wires extending into the neck. IMPRESSION: 1. Airspace opacities in the lungs, left worse than right with slight improvement, consistent with pn eumonia. 2. Stable small left pleural effusion. Reviewed, dictated and finalized at location A. IMPRESSION: 1. Airspace opacities in the lungs, left worse than right with slight improveme nt, consistent with pneumonia. 2. Stable small left pleural effusion.
--- NOTE | ~2019-10-22 | XR_ITS ---
EXAMINATION: XR chest 1V portable DATE: 10/27/2019 06:08 INDICATION: Pneumonia TECHNIQUE: frontal view of the chest was obtained. COMPARISON: Chest radiograph dated 10/26/19 FINDINGS: Endotracheal tube tip 4.7 cm above the oniel. Nasogastric tube extends below the left hemidiaphragm with distal tip collimated off the study. Electronic leads likely for deep brain stimulator extendin g from a power supply projecting over the left pectoral region bilaterally to the neck and beyond the cephalad margin of the [id number]. Slight decrease in scattered bilateral patchy airspace opacities and coarse linear opacities througho ut both lungs. No pneumothorax. Small left pleural effusion. The cardiomediastinal silhouette is norm al. Bilateral rotator cuff arthropathy. IMPRESSION: 1. Slight improvement in scattered bilateral airspace disease concerning for multifocal pneumonia. 2. Small left pleural effusion. Reviewed, dictated and finalized at location A. IMPRESSION: 1. Slight improvement in scattered bilateral airspace disease concerning for mu ltifocal pneumonia. 2. Small left pleural effusion.
--- NOTE | ~2019-10-22 | CT_ITS ---
EXAMINATION: CTA chest PE protocol DATE: 10/22/2019 05:46 INDICATION: Shortness of breath. ST elevation myocardial infarction 2 weeks prior. TECHNIQUE: Computed tomography (CT) pulmonary angiogram of the chest was performed with 100 mL Omnipa que-350 intravenous contrast. Additional 3D reconstructions utilizing coronal maximum intensity proje ction (MIP) were performed. Automated exposure control and iterative reconstruction technique were em ployed. The dose-length product was 607.36 mGy-cm. COMPARISON: None FINDINGS: Excellent contrast opacification of the pulmonary arteries. There is mild streak artifact from dense contrast in the superior vena cava and right atrium. Mild scattered respiratory motion artifact which does not significantly limit evaluation. No pulmonary embolism. Status post left lower lobectomy. Pa tchy regions of consolidation with air bronchograms throughout both lungs relatively sparing the righ t middle lobe and basilar segments of the right lower lobe. No septal line thickening in the remainde r of the lungs to suggest pulmonary edema. Small left and tiny right pleural effusions. No pneumothor ax. Heart size is normal. Atherosclerotic coronary artery calcifications and likely stenting along th e left anterior descending coronary artery. Small pericardial effusion. Ectatic ascending thoracic ao rta measuring up to 4.0 cm in maximal diameter. No aortic dissection. Calcified right paratracheal ly mph nodes consistent with old granulomatous disease. Numerous small calcific gallstones in the depend ent aspect of the normal-appearing gallbladder. Mild to moderate thoracic spondylosis. Chronic T7 and T8 compression fractures. IMPRESSION: 1. No pulmonary embolism. 2. Scattered patchy consolidation in both lungs which appears significantly increased since radiograp h dated 10/06/2019 most consistent with multifocal pneumonia with differential including organizing pn eumonia. 3. Small left and tiny right pleural effusions. 4. Small pericardial effusion. 5. Ectatic ascending thoracic aorta measuring up to 4.0 cm in maximal diameter. 6. Cholelithiasis. Reviewed, dictated and finalized at location A. IMPRESSION: 1. No pulmonary embolism. 2. Scattered patchy consolidation in both lungs which appears significantly inc reased since radiograph dated 10/06/2019 most consistent with multifocal pneumon ia with differential including organizing pneumonia. 3. Small left and tiny right pleural effusions. 4. Small pericardial effusion. 5. Ectatic ascending thoracic aorta measuring up to 4.0 cm in maximal diameter. 6. Cholelithiasis.
--- NOTE | ~2019-10-22 | XR_ITS ---
EXAMINATION: XR chest 2V DATE: 10/22/2019 03:54 INDICATION: Shortness of breath. ST elevation myocardial infarction 2 weeks prior. TECHNIQUE: frontal view of the chest was obtained. COMPARISON: Chest radiograph dated 10/06/2019 FINDINGS: Volume loss in the left hemithorax with surgical clip at the left hilum consistent with prior partial pneumonectomy. Significant interval progression in confluent airspace opacities in the right mid to upper lung zones and throughout the left lung. Small left and tiny right pleural effusions. No pneumo thorax. The cardiomediastinal silhouette is normal. Electrical leads likely volar deep brain stimulat ion extend to a left pectoral control device. There are couple chronic mild compression fractures in the lower thoracic spine. 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 IMPRESSION: 1. Worsening patchy bilateral airspace disease in both lungs concerning for pneumonia. 2. Small left and tiny right pleural effusions. Reviewed, dictated and finalized at location A. IMPRESSION: 1. Worsening patchy bilateral airspace disease in both lungs concerning for pne umonia. 2. Small left and tiny right pleural effusions.
--- NOTE | ~2019-10-22 | XR_ITS ---
XR abdomen NG/feed tube insert INDICATION: Evaluate NG tube position. TECHNIQUE: Limited KUB perform for evaluating NG tube . COMPARISON: 07/10/2018 FINDINGS: NG tube tip in the stomach. Visualized bowel gas pattern is unremarkable. IMPRESSION: 1: NG tube tip in the stomach. Reviewed, dictated and finalized at location A.
--- NOTE | ~2019-10-22 | XR_ITS ---
EXAMINATION: XR chest 1V portable DATE: 10/26/2019 14:52 INDICATION: Shortness of breath. TECHNIQUE: A single frontal view of the chest was obtained. COMPARISON: Chest 2 views 10/25/2019, chest CT 10/22/2019 FINDINGS: Again seen is volume loss of left hemithorax from left lower lobectomy. There are airspace opacities involving all lung zones bilaterally, left worse than right. There is a small left pleural effusion. No pneumothorax. The heart size is normal. An electronic device overlies left chest with el ectrodes coursing into the neck. A surgical clip overlies the left hilum. IMPRESSION: 1. Worsened diffuse lung disease, consistent with pneumonia versus acute respiratory distress syndrom e (ARDS). 2. Stable small left pleural effusion. Reviewed, dictated and finalized at location A. IMPRESSION: 1. Worsened diffuse lung disease, consistent with pneumonia versus acute respir atory distress syndrome (ARDS). 2. Stable small left pleural effusion.
--- NOTE | 2019-10-22 03:19 | ECG_ITS ---
Measurements Intervals [place] Rate: 82 P: -84 VA: 111 QRS: 105 QRSD: 94 T: 123 QT: 358 QTc: 419 Interpretive Statements ECTOPIC ATRIAL RHYTHM BORDERLINE R WAVE PROGRESSION, ANTERIOR LEADS T WAVE ABNORMALITY IN ANT/LAT LEADS- CONSIDER ISCHEMIA BASELINE ARTIFACT- I, II, III, AVR, AVL, AVF, V1, V3, V5-V6 ABNORMAL ECG Electronically Signed On 10-23-2019 8:05:58 CDT by Christopher Valentino D.O.
--- NOTE | 2019-10-22 03:23 | ED.GENADULT ---
HPI - General Adult General Chief complaint: Shortness of Breath/Dyspnea Stated complaint: sob Time Seen by Provider: 10/22/19 03:23 Source: patient and EMS Mode of arrival: EMS Limitations: no limitations History of Present Illness HPI narrative: Patient is a 73-year-old male with a history of deep brain stimulator, acute NC October 03, discharged from our facility on October 08, congestive heart failure known EF of 20-25%, who presents to emergency department for evaluation of shortness of breath. Patient has been feeling short of breath for most of the day today. He denies any leg swelling or new chest pain. He reports a dry cough. Patient denies fever, but is quite diaphoretic on exam. He denies any lower leg pain or calf pain. Patient is quite hard of hearing. Pt denies sore throat, congestion or otalgia. Related Data Home Medications Medication Instructions Recorded Confirmed gabapentin 100 mg PO TID 10/04/19 10/04/19 mirtazapine 7.5 mg PO HS 10/04/19 10/04/19 quetiapine 25 mg PO HS 10/04/19 10/04/19 sertraline 200 mg PO DAILY 10/04/19 10/04/19 tolterodine 4 mg PO DAILY 10/04/19 10/04/19 ziprasidone HCl 80 mg PO BID 10/04/19 10/04/19 Allergies Allergy/AdvReac Type Severity Reaction Status Date / Time Volwpwq-Pyd-Ugq Reductase AdvReac Unknown Muscle Verified 08/24/18 16:02 Inhibitor Spasms Review of Systems Review of Systems: Narrative: CONSTITUTIONAL: Denies fever CARDIOVASCULAR: Denies chest pain RESPIRATORY: Reports cough and shortness of breath GASTROINTESTINAL: Denies abdominal pain SKIN: Denies rash MUSCULOSKELETAL: Denies back pain, denies lower extremity swelling NEUROLOGIC: Denies headache [facility] [place] Past Medical History Medical History History of coronary artery disease History of depression History of diabetes mellitus History of hyperlipidemia History of hypertension History of hypothyroidism History of Parkinson's disease Surgical History Surgical History History of tonsillectomy Social History Social History Smoking packs per day: 2.5 Smoking cigarettes per day: 50.0 Years smoked: 10 Smoking pack-years: 25.00 Smoking status: Former smoker Tobacco type: cigarettes Second hand tobacco smoke exposure: Yes Alcohol intake: never Substance use: never Spiritual care concerns: No Exam Narrative: Exam Narrative: GENERAL: Awake, alert HEAD: Normocephalic, atraumatic. EYES: PERRLA and EOMI. ENT: Nares clear, no rhinorrhea or epistaxis. Mucous membranes moist. NECK: Supple. CHEST: Tachypnea, coarse breath sounds bilaterally with crackles bilaterally, mild use of abdominal accessory muscles to breathe, able to speak in short sentences HEART: Regular rate, sinus rhythm ABDOMEN:Non distended, non tender EXTREMITIES: Normal range of motion. No edema. No calf tenderness bilaterally. SKIN: Warm, dry, no rash. NEURO:No focal deficits. Alert and oriented x3 Course Vital Signs Vital signs: Vital Signs Pulse Rate 83 10/22/19 03:09 Respiratory Rate 15 10/22/19 03:09 Blood Pressure 126/78 10/22/19 03:09 Pulse Oximetry 93 10/22/19 03:09 Temperature 36.9 C 10/22/19 06:19 Pulse Rate 76 10/22/19 06:19 Respiratory Rate 22 H 10/22/19 06:19 Blood Pressure 98/70 L 10/22/19 06:19 Pulse Oximetry 97 10/22/19 06:19 Medical Decision Making MDM Narrative Medical decision making narrative: Patient presenting for evaluation of shortness of breath from care facility. At the time of assessment, ABCs are intact, patient is hypoxic with increased work of breathing and coarse breath sounds bilaterally. Given history of CHF with low documented EF, there is concern for possible acute on chronic heart failure. Also considered infectious etiology, however patient is afebrile currently. IV access obtained
--- NOTE | 2019-10-22 03:39 | PC.NURSE ---
I did not obtain the EKG; found EKG on clipboard and documented it.
--- NOTE | 2019-10-22 03:43 | PC.NURSE ---
Called lab to add on PT, PTT,BNP and troponin, spoke with Marcela.
[2019-10-22 03:46] LABS: Basophils Absolute Auto 0.1 K/mm3 (0.0-0.1); Basophils Percent Auto 0.5 % (0.2-1.2); Eosinophils Absolute Auto 0.1 K/mm3 (0-0.3); Eosinophils Percent Auto 0.6 % (0-4.4); Hematocrit 33.2 % (42.0-52.0); Hemoglobin 10.9 g/dL (14.0-18.0); Immature Granulocyte Absolute 0.08 K/mm3 (0.00-0.031); Immature Granulocyte Percent A 0.7 % (0-0.5); Lymphocytes Absolute Auto 0.92 K/mm3 (0.9-3.2); Lymphocytes Percent Auto 8.6 % (18.3-44.2); Mean Corpuscular HGB Conc 32.8 g/dl (32-36); Mean Corpuscular Hemoglobin 29.3 pg (26-34); Mean Corpuscular Volume 89.2 fl (80-100); Mean Platelet Volume 9.9 fl (7.4-10.4); Monocytes Absolute Auto 0.8 K/mm3 (0.1-0.6); Monocytes Percent Auto 7.7 % (2.6-8.5); Neutrophils Absolute Auto 8.8 K/mm3 (1.3-6.7); Neutrophils Percent Auto 81.9 % (45.5-73.1); Platelet Count Result 349 k/mm3 (150-375); Red Blood Count 3.72 M/mm3 (4.6-6.20); Red Cell Distribution Width 13.2 % (11.5-14.5); White Blood Count 10.7 K/mm3 (4.5-10.0)
[2019-10-22 03:56] LABS: INR 1.2; Prothrombin Time 14.4 Seconds (11.1-14.7)
[2019-10-22 03:57] LABS: Partial Thromboplastin Time 30.2 SECONDS (22.3-36.8)
[2019-10-22 03:59] LABS: Blood Urea Nitrogen 22 mg/dL (9-20); Calcium 8.5 mg/dL (8.4-10.2); Carbon Dioxide 19 mmol/L (22-30); Chloride 108 mmol/L (98-107); Estimated Glomerular Filt Rate > 60; Glucose 130 mg/dL (75-110); Potassium 3.9 mmol/L (3.4-5.0); Sodium 135 mmol/L (137-145)
[2019-10-22 03:59] LABS: Alveolar/Arterial O2 Gradient 108.2 mmHg; Base Excess ABG -2.7 mEq/l (+/-2.0); Carboxyhemoglobin 0.1 % THb (0-2.0); Fractional Inspired Oxygen 28 %; Methemoglobin ABG 0.3 %THb (0-1.5); Modified Allen's Test Pass; Oxygen Content ABG 15.3 %vol (16.0-22.0); Oxygen Saturation ABG 94.2 % (95.0-100.0); Oxyhemoglobin 91.4 % THb (90.0-100.0); PCO2 ABG 24.7 mmHg (35.0-45.0); PO2 ABG 62.3 mmHg (80.0-100.0); PO2 FiO2 Ratio Arterial Blood 2.22 %; Reduced Hemoglobin 8.2 %THb (0-5.0); Site Drawn RIGHT RADIAL; Total Hemoglobin 11.9 g/dL (12.0-18.0); pH ABG 7.503 (7.350-7.450)
[2019-10-22 04:00] LABS: Device NASAL CANNULA
[2019-10-22] MEDS: NITROGLYCERIN SL 0.4 MG TABLET SUBLINGUAL (04:08)
[2019-10-22] MEDS: FUROSEMIDE INJ 40 MG/4 ML VIAL 20 MG IV PUSH (04:08)
[2019-10-22 04:26] LABS: NT Pro B Type Natriuretic Pept 8280 PG/ML (5-100); Troponin I 0.127 ng/mL (0.000-0.034)
[2019-10-22 04:46] LABS: Lactate Dehydrogenase 675 U/L (313-618)
--- NOTE | 2019-10-22 05:09 | PC.NURSE ---
Monse patient's nurse calls to get update on patient.
--- NOTE | 2019-10-22 05:20 | PC.NURSE ---
Patient being taken to CT.
--- NOTE | 2019-10-22 08:06 | ADMGEN ---
This patient, Mayank Nuno, was admitted to Intensive Care Unit-3. Patient/family oriented to hospital policies and general routines including ID bracelet, bed and alarms, visiting hours, pain management, procedures, bathroom and other care routines, personal items, smoking policy, room service/diet, and visiting hours. Valuables list has been completed. Information on how to activate the Rapid Response Team has been discussed. Patient/Family are encouraged to report perceived risks to care and to ask questions if they do not understand what they are told or what they should do.
[2019-10-22 08:35] LABS: Add Urine Microscopic? NO; Appearance Urine Clear (Clear); Bilirubin Urine Negative (Negative); Blood Urine Negative (Negative); Color Urine Straw (Yellow); Glucose Urine UA Negative (Negative); Ketones Urine Negative (Negative); Leukocyte Esterase Ur Negative LEU/UL (Negative); Nitrate Urine Negative (Negative); Protein Urine Negative (Negative); Urobilinogen Urine Negative mg/dL (<2.0)
[2019-10-22 10:12] LABS: Troponin I 0.102 ng/mL (0.000-0.034)
--- NOTE | 2019-10-22 12:26 | PM.CNCAR ---
Assessment and Plan Assessment and plan (1) Respiratory failure with hypoxia: Qualifiers: Chronicity: acute Qualified Code(s): J96.01 - Acute respiratory failure with hypoxia Code(s): J96.91 - Respiratory failure, unspecified with hypoxia Status: Acute Assessment and Plan: Personal review of CTA and chest x-ray reveals bilateral infiltrates more consistent with multifocal pneumonia. Clinically, patient is not in decompensated heart failure although at risk given severe LV dysfunction and recent myocardial infarction. Continue prior cardiovascular medical therapy. May hold on diuresis at this time to be used on an as-needed basis. Continue support with intravenous antibiotics, supplemental oxygen. COVID-19 pending. DVT prophylaxis. No further cardiovascular workup indicated this time. Provide troponin remains downward trending no new symptoms or hemodynamic concerns with positive response to therapy already initiated will see patient on an as-needed basis. Please do not hesitate to contact us with any additional questions or concerns. (2) Ischemic cardiomyopathy: Code(s): I25.5 - Ischemic cardiomyopathy Status: Acute Assessment and Plan: Elevated BNP at presentation secondary to severe LV dysfunction, recent large ST-elevation MN, hypoxic respiratory failure presentation. Clinically, patient is not in significant acute decompensated heart failure. Continue Toprol XL, losartan, aspirin and ticagrelor. Unfortunately, patient reports a statin allergy. PCSK9 inhibitor therapy recommended but must be set up on an outpatient basis. Zetia 10mg daily at minimum an option. (3) Congestive heart failure: Qualifiers: Heart failure type: other Qualified Code(s): I50.9 - Heart failure, unspecified Code(s): I50.9 - Heart failure, unspecified Status: Acute Assessment and Plan: See above. Patient is not in decompensated heart failure present. (4) Troponin level elevated: Code(s): R79.89 - Other specified abnormal findings of blood chemistry Status: Acute Assessment and Plan: Downward trend from recent large ST-elevation MN 2 weeks ago. Statin thus far not consistent with acute coronary syndrome. EKG reveals ST abnormalities concerning for ischemia, however, patient's presentation is not consistent with acute coronary syndrome. Trend Trop I. repeat EKG in AM. (5) History of ST elevation myocardial infarction: Code(s): I25.2 - Old myocardial infarction Status: Acute Assessment and Plan: As above. Emergent stenting of distal left main 10/04/19 s/p 3.5x15mm MCKENZIE. Must remain on dual antiplatelet therapy without interruption. History of Present Illness History of Present Illness Consult date/time: Date of service: 10/22/19 12:26 This is a cardiology consultation at request of Dr. Mukherjee of the [facility] service for opinion regarding CHF. Requesting physician: Josue Mukherjee MD Consult reason: congestive heart failure Reason For Visit: Multifocal pneumonia/respiratory failure/acute hea Narrative: Patient is a complicated 73-year-old male with a history of Parkinson's disease status post deep brain stimulator, diabetes mellitus, hypertension, dyslipidemia, recently presented 10/04/2019 with severe chest pain status post collapse with VT in setting of anterolateral ST elevation for which emergent coronary angiography was performed which revealed 99% distal left main occlusion, dominant RCA with nonobstructive disease who underwent successful emergent intervention with placement of a 3.5 by 15 mm Yamila drug-eluting stent. Course was complicated by cardiogenic shock on Impella with decompensated heart failure, severe LV systolic dysfunction EF 30% akinesis of the apex, apical anterior, apical septal, apical lateral, and apical anterior burgess, severe hypokinesis of the mid anteroseptal mid anterolateral wall severe pulmonary hype
[2019-10-22 13:08] LABS: Troponin I 0.098 ng/mL (0.000-0.034)
[2019-10-22 13:33] LABS: SARS-CoV-2 RNA PCR Negative
[2019-10-22] MEDS: TICAGRELOR 90 MG TABLET PO ×2 (14:54→20:44)
[2019-10-22] MEDS: METOPROLOL SUCCINATE EXT REL 12.5 MG TABCR PO (14:54)
[2019-10-22] MEDS: ASPIRIN 81 MG CHEWABLE TABLET PO (14:54)
[2019-10-22] MEDS: LOSARTAN POTASSIUM 12.5 MG TABLET PO (14:54)
--- NOTE | 2019-10-22 15:27 | PM.IMHP ---
H&P: HPI History of Present Illness Chief complaint: Multifocal pneumonia/respiratory failure/acute hea Narrative: Date of visit 10/21 829. Mayank Nuno is a 73 year old male status post anterior myocardial infarction 10/03 with subsequent left main stent and history of congestive heart failure with EF 25% who while convalescing at a nearby shelter developed more shortness of breath and was transferred to the ER for evaluation. Patient relates a dry nonproductive cough for approximately 2 weeks with no fever chills or chest pain. In the emergency room had bilateral infiltrates and a CTA was performed which ruled out emboli been revealed the infiltrates more compatible with infection than fluid. He was cultures placed on ceftriaxone and azithromycin given 1 dose of furosemide and admitted. Is comfortable lying at present time with O2 by nasal cannula. Review of Systems Review of Systems: Narrative: No fever chills. Appetite fair and weight stable as far as he knows Eye no double vision or [place] Mouth a pharyngitis laryngitis Pulmonary as per present illness CV no chest pain or palpitations GI no melena hematochezia diarrhea no dysuria no hematuria Muscle skeletal no particular joint discomfort Neuro Parkinson's which she says he does very little walking Integument no rashes PMFSH Past Medical History Medical History (Updated 10/22/19 @ 15:43 by Alberto Lebron MD) History of coronary artery disease History of depression History of diabetes mellitus History of hyperlipidemia History of hypertension History of hypothyroidism History of Parkinson's disease Surgical History Surgical History (Updated 10/22/19 @ 15:37 by Alberto Lebron MD) H/O prostatectomy History of lumbar surgery History of tonsillectomy S/P deep brain stimulator placement S/P lobectomy of lung S/P total knee arthroplasty Family History Family History (Updated 10/22/19 @ 15:40 by Alberto Lebron MD) Father , in his 70s Congestive heart failure Parkinson disease Mother , Had a essential tremor and primarily lives natural causes in her 80s No problems noted. 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 Smoking packs per day: 2.5 Smoking cigarettes per day: 50.0 Years smoked: 10 Smoking pack-years: 25.00 Smoking status: Former smoker Tobacco type: cigarettes Second hand tobacco smoke exposure: Yes Alcohol intake: never Substance use: never Gender identity (if verbalized by the patient): Male Spiritual care concerns: No Meds Home Medications and Allergies Home Medications Medication Instructions Recorded Confirmed Type gabapentin 100 mg PO TID 10/04/19 10/22/19 History mirtazapine 7.5 mg PO HS 10/04/19 10/22/19 History quetiapine 25 mg PO HS 10/04/19 10/22/19 History sertraline 200 mg PO DAILY 10/04/19 10/22/19 History tolterodine 4 mg PO DAILY 10/04/19 10/22/19 History ziprasidone HCl 80 mg PO BID 10/04/19 10/22/19 History aspirin [Children's Aspirin] 81 mg PO DAILY@0800 #30 tablet 10/06/19 10/22/19 Rx losartan 12.5 mg PO QAM #15 tablet 10/06/19 10/22/19 Rx ticagrelor [Brilinta] 90 mg PO Q12HR #60 tablet 10/06/19 10/22/19 Rx metoprolol succinate 12.5 mg PO DAILY #15 tablet 10/08/19 10/22/19 Rx Allergies Allergy/AdvReac Type Severity Reaction Status Date / Time Gqdvzkj-Edm-Ujy Reductase AdvReac Unknown Muscle Verified 08/24/18 16:02 Inhibitor Spasms Vital Signs Vital Signs - 24 hr 10/22/19 03:09 10/22/19 03:18 10/22/19 03:21 Temperature 36.4 C Pulse Rate 83 83 79 Respiratory Rate 15 22 H Blood Pressure 126/78 151/72 H Pulse Oximetry 95 94 94 10/22/19 03:30 10/22/19 03:31 10/22/19 03:52 Temperature Pulse Rate 84 81 80 Respiratory Rate 22 H 17 Blood Pressure 125/71 Pulse Oximetry 96 10/22/19 03:53 10/22/19 04:00 10/22/19 04:05
[2019-10-22] MEDS: GABAPENTIN 100 MG CAPSULE PO (15:34)
[2019-10-22] MEDS: ZIPRASIDONE HCL 80 MG PO (15:34)
--- NOTE | 2019-10-22 16:08 | PC.NURSE ---
Transfered patient to [facility] via bed. Report given to Cheryle ALVAREZ. Medications and chart handed to secretary specialist. All belongings checked and moved with patient at 1600.
--- NOTE | 2019-10-22 16:26 | PCDIET ---
Patient received from IMU on 10/22/2019 at 1615. Patient in bed resting with no complaints at this time. Will continue to monitor.
[2019-10-22] MEDS: ENOXAPARIN 40 MG/0.4 ML SYRINGE SUB-Q (20:44)
[2019-10-22] MEDS: QUEtiapine FUMARATE 25 MG TABLET PO (20:44)
[2019-10-22] MEDS: MIRTAZAPINE 7.5 MG TABLET PO (20:44)
[2019-10-23] VITALS (10 sets, daily range): BP systolic 108–132; BP diastolic 54–67; PULSE 75–88; RESP 16–21; TEMP 36.8–37.1; O2SAT 92–98
[2019-10-23 06:20] LABS: Basophils Percent Auto 0.4 % (0.2-1.2); Eosinophils Absolute Auto 0.1 K/mm3 (0-0.3); Eosinophils Percent Auto 1.3 % (0-4.4); Hemoglobin 10.4 g/dL (14.0-18.0); Immature Granulocyte Absolute 0.08 K/mm3 (0.00-0.031); Immature Granulocyte Percent A 0.9 % (0-0.5); Lymphocytes Absolute Auto 0.97 K/mm3 (0.9-3.2); Lymphocytes Percent Auto 10.9 % (18.3-44.2); Mean Corpuscular HGB Conc 32.5 g/dl (32-36); Mean Corpuscular Hemoglobin 28.9 pg (26-34); Mean Corpuscular Volume 88.9 fl (80-100); Monocytes Absolute Auto 0.8 K/mm3 (0.1-0.6); Monocytes Percent Auto 8.9 % (2.6-8.5); Neutrophils Absolute Auto 6.9 K/mm3 (1.3-6.7); Neutrophils Percent Auto 77.6 % (45.5-73.1); Platelet Count Result 327 k/mm3 (150-375); Red Cell Distribution Width 13.2 % (11.5-14.5); White Blood Count 8.9 K/mm3 (4.5-10.0)
[2019-10-23 06:31] LABS: Blood Urea Nitrogen 21 mg/dL (9-20); Calcium 8.1 mg/dL (8.4-10.2); Carbon Dioxide 22 mmol/L (22-30); Chloride 105 mmol/L (98-107); Estimated CRCL calculation 71 ml/min; Estimated Glomerular Filt Rate > 60; Glucose 119 mg/dL (75-110); Potassium 3.9 mmol/L (3.4-5.0); Sodium 134 mmol/L (137-145)
--- NOTE | 2019-10-23 07:00 | ECG_ITS ---
Measurements Intervals [place] Rate: 70 P: -72 NC: 157 QRS: 73 QRSD: 98 T: 127 QT: 540 QTc: 587 Interpretive Statements ECTOPIC ATRIAL RHYTHM DELAYED PRECORDIAL R/S TRANSITION T WAVE ABNORMALITY IN ANTEROLAT/LAT LEADS- CONSIDER ISCHEMIA BASELINE ARTIFACT- II, III ABNORMAL ECG Electronically Signed On 10-23-2019 8:12:56 CDT by Christopher Valentino D.O.
[2019-10-23] MEDS: ASPIRIN 81 MG CHEWABLE TABLET PO (08:35)
[2019-10-23] MEDS: GABAPENTIN 100 MG CAPSULE PO ×3 (08:36→16:52)
[2019-10-23] MEDS: LOSARTAN POTASSIUM 12.5 MG TABLET PO (08:36)
[2019-10-23] MEDS: METOPROLOL SUCCINATE EXT REL 12.5 MG TABCR PO (08:36)
[2019-10-23] MEDS: TICAGRELOR 90 MG TABLET PO ×2 (08:37→21:33)
[2019-10-23] MEDS: SERTRALINE HCL 50 MG TABLET 200 MG PO (08:38)
[2019-10-23] MEDS: TOLTERODINE TARTRATE LA 4 MG CAP.ER.24H PO (08:38)
[2019-10-23] MEDS: ZIPRASIDONE HCL 80 MG PO ×2 (08:39→16:52)
--- NOTE | 2019-10-23 13:01 | PM.PNCARD ---
Progress Note: A&P Assessment and Plan (1) Ectopic atrial rhythm: Code(s): I49.1 - Atrial premature depolarization Status: Acute Assessment and Plan: Asymptomatic primary stable. Continue current medical therapy Toprol XL 12.5 mg daily for now. Continue telemetry. (2) Respiratory failure with hypoxia: Qualifiers: Chronicity: acute Qualified Code(s): J96.01 - Acute respiratory failure with hypoxia Code(s): J96.91 - Respiratory failure, unspecified with hypoxia Status: Acute Assessment and Plan: Most consistent with multifocal pneumonia. Clinically, patient is not in decompensated heart failure although at risk given severe LV dysfunction and recent myocardial infarction. Continue prior cardiovascular medical therapy. May hold on diuresis at this time to be used on an as-needed basis. Continue support with intravenous antibiotics, supplemental oxygen. COVID-19 negative. DVT prophylaxis. No further cardiovascular workup indicated this time. Please do not hesitate to contact us with any additional questions or concerns. (3) Ischemic cardiomyopathy: Code(s): I25.5 - Ischemic cardiomyopathy Status: Acute Assessment and Plan: Elevated BNP at presentation secondary to severe LV dysfunction, recent large ST-elevation VA, hypoxic respiratory failure presentation. Clinically, patient is not in significant acute decompensated heart failure. Continue Toprol XL, losartan, aspirin and ticagrelor. Unfortunately, patient reports a statin allergy. PCSK9 inhibitor therapy recommended but must be set up on an outpatient basis. Zetia 10mg daily at minimum an option. (4) Congestive heart failure: Qualifiers: Heart failure type: other Qualified Code(s): I50.9 - Heart failure, unspecified Code(s): I50.9 - Heart failure, unspecified Status: Acute Assessment and Plan: See above. Patient is not in decompensated heart failure present. (5) Troponin level elevated: Code(s): R79.89 - Other specified abnormal findings of blood chemistry Status: Acute Assessment and Plan: Downward trend from recent large ST-elevation VA 2 weeks ago. Statin thus far not consistent with acute coronary syndrome. EKG reveals ST abnormalities concerning for ischemia, however, patient's presentation is not consistent with acute coronary syndrome. Trend Trop I. repeat EKG in AM. (6) History of ST elevation myocardial infarction: Code(s): I25.2 - Old myocardial infarction Status: Acute Assessment and Plan: As above. Emergent stenting of distal left main 10/04/19 s/p 3.5x15mm MCKENZIE. Must remain on dual antiplatelet therapy without interruption. Subjective Date/time seen: Date of service: 10/23/19 13:01 Follow-up for CAD, cardiomyopathy, shortness of breath Interval history: Patient has no new complaints today. Denies shortness of breath, chest pain. States he feels he eats too fast as he gets somewhat short of breath but when he paces himself no issues. No new reported issues overnight. Review of Systems Review of Systems: All systems reviewed & are unremarkable except as noted in HPI and below Constitutional: Constitutional: Reports as per HPI, Reports no additional constitutional complaints, Denies excessive sweating and Reports weakness Eyes: Eyes: Reports as per HPI and Reports no additional eye complaints ENT: Reports system reviewed and no additional complaints, except as documented, Reports as per HPI and Denies Normal hearing present Cardiovascular: Cardiovascular: Reports as per HPI, Reports no additional cardiovascular complaints, Reports chest pain (Different than presenting anginal pain), Denies diaphoresis, Denies pedal edema, Denies leg edema, Reports dyspnea and Reports dyspnea on exertion Respiratory: Respiratory: Reports as per HPI, Reports no additional respiratory complaints, Reports cough, Reports dyspnea, Repo
[2019-10-23] MEDS: ALBUTEROL SULFATE NEB 2.5 MG/0.5 ML INH 5 MG INHALATION ×2 (13:57→19:15)
[2019-10-23] MEDS: ACETAMINOPHEN 325 MG TABLET 650 MG PO (16:51)
--- NOTE | 2019-10-23 18:00 | PM.IMPN ---
Progress Note: A&P Assessment and Plan (1) Respiratory failure with hypoxia: Qualifiers: Chronicity: acute Qualified Code(s): J96.01 - Acute respiratory failure with hypoxia Code(s): J96.91 - Respiratory failure, unspecified with hypoxia Status: Acute Assessment and Plan: O2 saturation above 90% but hyperventilating to maintain an on 2 L nasal cannula on admission, so acute respiratory failure with hypoxia thought secondary to his pneumonia Treat underlying infection with supplemental O2 and antibiotics and today O2 sats 94% on 2 L with respiration of only 16 (2) Pneumonia: Qualifiers: Laterality: bilateral Lung location: upper lobe of lung Pneumonia type: due to unspecified organism Qualified Code(s): J18.9 - Pneumonia, unspecified organism Code(s): J18.9 - Pneumonia, unspecified organism Status: Acute Assessment and Plan: Infiltrates bilaterally. COVID negative. Covered with ceftriaxone azithromycin initially but with his recent hospitalization and subsequent rehab I believe he is definitely at risk for hospital associated infection broadened the scope to cover for g negatives and staph with Zosyn and vancomycin in place of ceftriaxone Cultures so far negative and urine antigens pending (3) Ischemic cardiomyopathy: Code(s): I25.5 - Ischemic cardiomyopathy Status: Acute Assessment and Plan: Appears compensated and troponin could be residual from before or mild failure. No ischemic event suspected. Continue beta-carmela , ARB and p.r.n. diuretic Will continue his Brilinta and aspirin. Intolerant of statins (4) Parkinsons disease: Code(s): G20 - Parkinson's disease Status: Acute Assessment and Plan: Continue all his usual medications. 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 FBS today 10/22, 119 (7) DVT prophylaxis: Code(s): Z29.9 - Encounter for prophylactic measures, unspecified Status: Acute Assessment and Plan: Lovenox Subjective Date/time seen: 10/23/19 18:00 Interval history: Date of visit 10/22. 73-year-old white male with ischemic cardiomyopathy status post stenting to left main 10/03 presented with increasing shortness of breath. Denies any chest pain or fever but has had dry cough. Chest x-ray thought to possibly be congestive failure but cardiology and myself felt it more to be multifocal infiltrates secondary to pneumonia. Feeling better today after updrafts and antibiotics Exam Narrative: Exam Narrative: Blood pressure 108/66 pulse is 76 respirations 16 per minute saturating 94% with 2 L nasal cannula afebrile Pupils equal reactive to light sclera anicteric Neck supple no adenopathy Mouth appears normal Lungs relatively clear maybe faint crackle dry left posterior base CV regular rate rhythm no murmur Abdomen soft nontender no masses bowel sounds normal active Extremities without edema dorsalis pedis posterior tibial 1 to 2+ Neuro alert slow movements with affect flat Psych appears appropriate pleasant Objective Data Vital Signs Vital Signs: Vital Signs - 24 hr 10/22/19 20:09 10/22/19 21:33 10/23/19 08:34 Temperature 36.6 C Pulse Rate 71 Respiratory Rate 16 Blood Pressure 129/65 Pulse Oximetry 97 94 93 0
[2019-10-23] MEDS: QUEtiapine FUMARATE 25 MG TABLET PO (21:33)
[2019-10-23] MEDS: ENOXAPARIN 40 MG/0.4 ML SYRINGE SUB-Q (21:33)
[2019-10-23] MEDS: MIRTAZAPINE 7.5 MG TABLET PO (21:33)
[2019-10-24] VITALS (12 sets, daily range): BP systolic 109–118; BP diastolic 48–81; PULSE 64–91; RESP 16–20; TEMP 36.1–36.7; O2SAT 91–98
[2019-10-24] MEDS: ALBUTEROL SULFATE NEB 2.5 MG/0.5 ML INH 5 MG INHALATION ×4 (01:09→19:42)
[2019-10-24 04:46] LABS: Basophils Percent Auto 0.4 % (0.2-1.2); Eosinophils Absolute Auto 0.2 K/mm3 (0-0.3); Eosinophils Percent Auto 1.7 % (0-4.4); Hematocrit 31.4 % (42.0-52.0); Immature Granulocyte Absolute 0.07 K/mm3 (0.00-0.031); Immature Granulocyte Percent A 0.7 % (0-0.5); Lymphocytes Absolute Auto 1.07 K/mm3 (0.9-3.2); Lymphocytes Percent Auto 10.9 % (18.3-44.2); Mean Corpuscular HGB Conc 31.8 g/dl (32-36); Mean Corpuscular Hemoglobin 28.8 pg (26-34); Mean Corpuscular Volume 90.5 fl (80-100); Monocytes Absolute Auto 0.7 K/mm3 (0.1-0.6); Monocytes Percent Auto 6.9 % (2.6-8.5); Neutrophils Absolute Auto 7.8 K/mm3 (1.3-6.7); Neutrophils Percent Auto 79.4 % (45.5-73.1); Platelet Count Result 305 k/mm3 (150-375); Red Blood Count 3.47 M/mm3 (4.6-6.20); Red Cell Distribution Width 13.2 % (11.5-14.5); White Blood Count 9.8 K/mm3 (4.5-10.0)
[2019-10-24 05:00] LABS: Blood Urea Nitrogen 22 mg/dL (9-20); Calcium 8.2 mg/dL (8.4-10.2); Carbon Dioxide 23 mmol/L (22-30); Chloride 105 mmol/L (98-107); Estimated CRCL calculation 59 ml/min; Estimated Glomerular Filt Rate 60; Glucose 134 mg/dL (75-110); Potassium 3.7 mmol/L (3.4-5.0); Sodium 135 mmol/L (137-145)
[2019-10-24] MEDS: SERTRALINE HCL 50 MG TABLET 200 MG PO (09:10)
[2019-10-24] MEDS: TICAGRELOR 90 MG TABLET PO ×2 (09:10→20:39)
[2019-10-24] MEDS: ASPIRIN 81 MG CHEWABLE TABLET PO (09:10)
[2019-10-24] MEDS: GABAPENTIN 100 MG CAPSULE PO ×3 (09:10→17:43)
[2019-10-24] MEDS: ZIPRASIDONE HCL 80 MG PO ×2 (09:10→17:43)
[2019-10-24] MEDS: LOSARTAN POTASSIUM 12.5 MG TABLET PO (09:11)
[2019-10-24] MEDS: METOPROLOL SUCCINATE EXT REL 12.5 MG TABCR PO (09:11)
[2019-10-24] MEDS: TOLTERODINE TARTRATE LA 4 MG CAP.ER.24H PO (09:11)
--- NOTE | 2019-10-24 17:34 | PM.IMPN ---
Progress Note: A&P Assessment and Plan (1) Respiratory failure with hypoxia: Qualifiers: Chronicity: acute Qualified Code(s): J96.01 - Acute respiratory failure with hypoxia Code(s): J96.91 - Respiratory failure, unspecified with hypoxia Status: Acute Assessment and Plan: O2 saturation above 90% but hyperventilating to maintain on 2 L nasal cannula on admission, so acute respiratory failure with hypoxia thought secondary to his pneumonia Treat underlying infection with supplemental O2 and antibiotics and today O2 sats 94% on 2 L with respiration of only 16 (2) Pneumonia: Qualifiers: Laterality: bilateral Lung location: upper lobe of lung Pneumonia type: due to unspecified organism Qualified Code(s): J18.9 - Pneumonia, unspecified organism Code(s): J18.9 - Pneumonia, unspecified organism Status: Acute Assessment and Plan: Infiltrates bilaterally. COVID negative. Covered with ceftriaxone azithromycin initially but with his recent hospitalization and subsequent rehab I believe he is definitely at risk for hospital associated infection broadened the scope to cover for g negatives and staph with Zosyn and vancomycin in place of ceftriaxone(D#3) Cultures so far negative and urine antigens pending (3) Ischemic cardiomyopathy: Code(s): I25.5 - Ischemic cardiomyopathy Status: Acute Assessment and Plan: Appears compensated and troponin could be residual from before or mild failure. No ischemic event suspected. Continue beta-carmela , ARB and p.r.n. diuretic Will continue his Brilinta and aspirin. Intolerant of statins (4) Parkinsons disease: Code(s): G20 - Parkinson's disease Status: Acute Assessment and Plan: Continue all his usual medications. 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 FBS today 10/23, 134 (7) DVT prophylaxis: Code(s): Z29.9 - Encounter for prophylactic measures, unspecified Status: Acute Assessment and Plan: Lovenox Subjective Date/time seen: 10/24/19 17:34 Interval history: Date of visit 10/23. 73-year-old white male with ischemic cardiomyopathy status post stenting to left main 10/03 presented with increasing shortness of breath. Denies any chest pain or fever but has had dry cough. Chest x-ray thought to possibly be congestive failure but cardiology and myself felt it more to be multifocal infiltrates secondary to pneumonia. Feeling better today after updrafts and antibiotics. up in chair and working with PT Exam Narrative: Exam Narrative: Blood pressure 118/80 pulse is 90 respirations 16 per minute saturating 92% with 2 L nasal cannula afebrile Pupils equal reactive to light sclera anicteric Neck supple no adenopathy Mouth appears normal Lungs relatively clear with no crackles today CV regular rate rhythm no murmur Abdomen soft nontender no masses bowel sounds normal active Extremities without edema dorsalis pedis posterior tibial 1 to 2+ Neuro alert slow movements with affect flat Psych appears appropriate pleasant Objective Data Vital Signs Vital Signs: Vital Signs - 24 hr 10/23/19 19:16 10/23/19 19:23 10/23/19 19:34 Temperature Pulse Rate 77 88 Respiratory Rate 18 18 Blood Pressure Pulse Oximetry 95
[2019-10-24] MEDS: ACETAMINOPHEN 325 MG TABLET 650 MG PO (17:47)
[2019-10-24] MEDS: ENOXAPARIN 40 MG/0.4 ML SYRINGE SUB-Q (20:39)
[2019-10-24] MEDS: MIRTAZAPINE 7.5 MG TABLET PO (20:39)
[2019-10-24] MEDS: QUEtiapine FUMARATE 25 MG TABLET PO (20:39)
[2019-10-24 22:10] LABS: Vancomycin Trough 10.1 ug/mL (10.0-20.0)
[2019-10-25] VITALS (11 sets, daily range): BP systolic 108–133; BP diastolic 53–82; PULSE 71–85; RESP 20–25; TEMP 36.6–37.4; O2SAT 89–93
[2019-10-25 05:43] LABS: Estimated CRCL calculation 65 ml/min; Estimated Glomerular Filt Rate > 60
[2019-10-25] MEDS: GABAPENTIN 100 MG CAPSULE PO ×3 (08:48→16:17)
[2019-10-25] MEDS: ASPIRIN 81 MG CHEWABLE TABLET PO (08:48)
[2019-10-25] MEDS: ZIPRASIDONE HCL 80 MG PO ×2 (08:48→16:17)
[2019-10-25] MEDS: LOSARTAN POTASSIUM 12.5 MG TABLET PO (08:48)
[2019-10-25] MEDS: METOPROLOL SUCCINATE EXT REL 12.5 MG TABCR PO (08:48)
[2019-10-25] MEDS: SERTRALINE HCL 50 MG TABLET 200 MG PO (08:49)
[2019-10-25] MEDS: TICAGRELOR 90 MG TABLET PO ×2 (08:49→20:56)
[2019-10-25] MEDS: TOLTERODINE TARTRATE LA 4 MG CAP.ER.24H PO (08:49)
[2019-10-25] MEDS: ALBUTEROL SULFATE NEB 2.5 MG/0.5 ML INH 5 MG INHALATION ×3 (08:56→20:39)
[2019-10-25] MEDS: ACETAMINOPHEN 325 MG TABLET 650 MG PO (12:37)
--- NOTE | 2019-10-25 13:49 | P.CDI_ITS ---
CDI Query Clarification Request - history of congestive heart failure with EF 25% has been documented in H&P - heart failure,unspecified and patient is not in decompensated heart failure documented by cardiology Please further specify type of CHF: * Systolic * Diastolic * Both Systolic and Diastolic * Unable to determine <Vi Higuera RN - Last Filed: 10/25/19 13:53>
[2019-10-25 14:01] LABS: Pneumococcal Antigen Urine Not Detected (Not Detected)
--- NOTE | 2019-10-25 15:02 | PM.PNCARD ---
Progress Note: A&P Additional Plan 73-year-old white male with: Coronary artery disease remarkably so has survived acute NM due to abrupt left main occlusion several weeks ago. Had a drug-eluting stent placed to the left main coronary at that time. As expected has poor left ventricular systolic function since then. Shortness of breath certainly is contributed to by this but clinically and elect radiographically he does not appear to be in a state of volume overload/CHF. Current medical regimen is appropriate. PSK9 inhibitor should be started as an outpatient as he is intolerant of statins When he is discharged he intends to follow up with physicians at the [facility] where he normally receives his care David Stovall MD [facility] Subjective Date/time seen: Date of service: 10/25/19 15:02 Interval history: Follow-up visit in 73-year-old man with coronary artery disease who remarkably survived an abrupt left main occlusion several weeks ago which was treated with emergency PCI, drug-eluting stent and Impella ventricular assist device for treatment of cardiogenic shock which not surprisingly was coincident at that time as well. Patient currently hospitalized with some shortness of breath as expected has poor left ventricular systolic function. Chest x-ray however is more compatible with multi lobe pneumonia No cardiovascular complaints today patient is getting ready to ambulate with physical therapy Exam Const: General: no acute distress HENMT: Mouth: Yes moist mucous membranes Eyes: Sclera: sclerae normal Pupils: Equal, round and reactive pupils present Neck: Neck: supple and no JVD Thyroid: thyroid normal Resp: Effort & Inspection: normal respiratory effort Other: Decreased breath sounds left lower lobe Cardio: Rate: regular rate Rhythm: regular rhythm Other: No murmur no gallop GI: Auscultation: normal bowel sounds Skin: General skin exam: normal color Neuro: Cognition (Neuro): normal cognition Other: Patient's response to questions is slow but appropriate Extrem: General: normal to inspection Other: Adequate perfusion, no peripheral edema Objective Data Vital Signs Vital Signs: Vital Signs - 24 hr 10/24/19 19:42 10/24/19 19:46 10/24/19 19:50 Temperature Pulse Rate 76 76 71 Respiratory Rate 20 20 20 Blood Pressure Pulse Oximetry 91 10/24/19 22:00 10/25/19 06:00 10/25/19 08:48 Temperature 36.6 C 37.4 C Pulse Rate 64 78 80 Respiratory Rate 18 22 H Blood Pressure 109/50 L 126/82 Pulse Oximetry 92 89 L 10/25/19 08:56 10/25/19 09:10 10/25/19 13:45 Temperature Pulse Rate 78 85 79 Respiratory Rate 20 20 20 Blood Pressure Pulse Oximetry 89 L 92 10/25/19 13:53 10/25/19 14:00 Temperature 36.8 C Pulse Rate 77 77 Respiratory Rate 20 25 H Blood Pressure 108/53 L Pulse Oximetry 93 Intake/Output Intake/Output: Intake & Output 10/22/19 10/23/19 10/24/19 10/25/19 23:59 23:59 23:59 23:59 Intake Total 1900 1770 2255 2216 Output Total 825 3400 1000 240 Balance 1075 -1630 1255 1976 Meds/Results Medications: Active Medications Generic Name Dose Route Start Last Admin Trade Name Freq PRN Reason Stop Dose Admin Acetaminophen 650 mg 10/23/19 16:38 10/25/19 12:37 Tylenol Tablet PO 650 mg Q4H PRN Administration Mild Pain (1-3) or Fever Albuterol 5 mg 10/23/19 14:00 10/25/19 13:43 Albuterol Sulf Neb 2.5mg/0.5ml INHALATION 5 mg Q6HRT MONICO Administration Aspirin 81 mg 10/22/19 14:25 10/25/19 08:48 Aspirin Chewable PO 81 mg DAILY@0800 MONICO Administration Enoxaparin Sodium 40 mg 10/22/19 21:00 10/24/19 20:39 Lovenox SUB-Q 40 mg HS MONICO Administration Gabapentin 100 mg 10/22/19 17:00 10/25/19 12:38 Neurontin PO 100 mg TID MONICO Administration Azithromycin 500 mg in 250 mls @ 250 mls/hr 10/23/19 06:00 10/25/19 07:15 Zithromax IVPB Infused Q24H MONICO Infusion Piperacillin/Tazobactam/Dex
--- NOTE | 2019-10-25 15:50 | PM.IMPN ---
Progress Note: A&P Assessment and Plan (1) Respiratory failure with hypoxia: Qualifiers: Chronicity: acute Qualified Code(s): J96.01 - Acute respiratory failure with hypoxia Code(s): J96.91 - Respiratory failure, unspecified with hypoxia Status: Acute Assessment and Plan: O2 saturation above 90% but hyperventilating to maintain on 2 L nasal cannula on admission, so acute respiratory failure with hypoxia thought secondary to his pneumonia Treat underlying infection with supplemental O2 and antibiotics and today O2 sats 93% on 3 L (2) Pneumonia: Qualifiers: Laterality: bilateral Lung location: upper lobe of lung Pneumonia type: due to unspecified organism Qualified Code(s): J18.9 - Pneumonia, unspecified organism Code(s): J18.9 - Pneumonia, unspecified organism Status: Acute Assessment and Plan: Infiltrates bilaterally. COVID negative. Covered with ceftriaxone azithromycin initially but with his recent hospitalization and subsequent rehab I believe he is definitely at risk for hospital associated infection broadened the scope to cover for g negatives and staph with Zosyn and vancomycin in place of ceftriaxone(D#4) Cultures so far negative and urine antigens for strep neg and legionella still pending (3) Ischemic cardiomyopathy: Code(s): I25.5 - Ischemic cardiomyopathy Status: Acute Assessment and Plan: chronic systolic CHF Appears compensated and troponin could be residual from before or mild failure. No ischemic event suspected. Continue beta-carmela , ARB and p.r.n. diuretic Will continue his Brilinta and aspirin. Intolerant of statins (4) Parkinsons disease: Code(s): G20 - Parkinson's disease Status: Acute Assessment and Plan: Continue all his usual medications. (5) Hypertension: Code(s): I10 - Essential (primary) hypertension Status: Acute Assessment and Plan: Blood pressure well controlled with low-dose ARB and beta-carmela (6) Diabetes: Qualifiers: Diabetes mellitus type: type 2 Diabetes mellitus moth exterminator insulin use: without moth exterminator use Diabetes mellitus complication status: without complication Qualified Code(s): E11.9 - Type 2 diabetes mellitus without complications Code(s): E11.9 - Type 2 diabetes mellitus without complications Status: Acute Assessment and Plan: Diet controlled and random sugar only 130 and not a problem during his last hospitalization so will not require fingersticks or sliding scale. FBS today 10/23, 134 and recheck am (7) DVT prophylaxis: Code(s): Z29.9 - Encounter for prophylactic measures, unspecified Status: Acute Assessment and Plan: Jimx Subjective Date/time seen: 10/25/19 15:50 Interval history: Date of visit 10/24. 73-year-old white male with ischemic cardiomyopathy status post stenting to left main 10/03 presented with increasing shortness of breath. Denies any chest pain or fever but has had dry cough. Chest x-ray thought to possibly be congestive failure but cardiology and myself felt it more to be multifocal infiltrates secondary to pneumonia. Feeling better today after updrafts and antibiotics. up in chair and working with PT Exam Narrative: Exam Narrative: Blood pressure 110/50 pulse is 76 respirations 16 per minute saturating 93% with 3 L nasal cannula afebrile Pupils equal reactive to light sclera anicteric Neck supple no adenopathy Mouth appears normal Lungs relatively clear with fait left post basal crackle CV regular rate rhythm no murmur Abdomen soft nontender no masses bowel sounds normal active Extremities without edema dorsalis pedis posterior tibial 1 to 2+ Neuro alert slow movements with affect flat Psych appears appropriate pleasant Objective Data Vital Signs Vital Signs: Vital Signs - 24 hr 10/24/19 19:42 10/24/19 19:46 10/24/19 19:50 Temperature Pulse Rate 76 76 71 Respira
[2019-10-25] MEDS: ENOXAPARIN 40 MG/0.4 ML SYRINGE SUB-Q (20:56)
[2019-10-25] MEDS: QUEtiapine FUMARATE 25 MG TABLET PO (20:56)
[2019-10-25] MEDS: MIRTAZAPINE 7.5 MG TABLET PO (20:56)
[2019-10-26] VITALS (44 sets, daily range): BP systolic 64–156; BP diastolic 46–132; PULSE 69–110; RESP 18–35; TEMP 36.4–37.3; O2SAT 89–100
[2019-10-26] MEDS: ALBUTEROL SULFATE NEB 2.5 MG/0.5 ML INH 5 MG INHALATION ×3 (01:57→13:56)
[2019-10-26 06:09] LABS: Basophils Absolute Auto 0.1 K/mm3 (0.0-0.1); Basophils Percent Auto 0.4 % (0.2-1.2); Eosinophils Absolute Auto 0.2 K/mm3 (0-0.3); Eosinophils Percent Auto 1.8 % (0-4.4); Hematocrit 33.3 % (42.0-52.0); Hemoglobin 10.8 g/dL (14.0-18.0); Immature Granulocyte Absolute 0.08 K/mm3 (0.00-0.031); Immature Granulocyte Percent A 0.7 % (0-0.5); Lymphocytes Absolute Auto 1.05 K/mm3 (0.9-3.2); Lymphocytes Percent Auto 8.9 % (18.3-44.2); Mean Corpuscular HGB Conc 32.4 g/dl (32-36); Mean Corpuscular Hemoglobin 28.5 pg (26-34); Mean Corpuscular Volume 87.9 fl (80-100); Monocytes Absolute Auto 0.8 K/mm3 (0.1-0.6); Monocytes Percent Auto 6.8 % (2.6-8.5); Neutrophils Absolute Auto 9.7 K/mm3 (1.3-6.7); Neutrophils Percent Auto 81.4 % (45.5-73.1); Platelet Count Result 345 k/mm3 (150-375); Red Blood Count 3.79 M/mm3 (4.6-6.20); Red Cell Distribution Width 13.2 % (11.5-14.5); White Blood Count 11.9 K/mm3 (4.5-10.0)
[2019-10-26 06:22] LABS: Blood Urea Nitrogen 20 mg/dL (9-20); Calcium 8.6 mg/dL (8.4-10.2); Carbon Dioxide 23 mmol/L (22-30); Chloride 104 mmol/L (98-107); Estimated CRCL calculation 59 ml/min; Estimated Glomerular Filt Rate 60; Glucose 118 mg/dL (75-110); Potassium 4.2 mmol/L (3.4-5.0); Sodium 135 mmol/L (137-145)
[2019-10-26] MEDS: GABAPENTIN 100 MG CAPSULE PO ×3 (08:21→17:07)
[2019-10-26] MEDS: METOPROLOL SUCCINATE EXT REL 12.5 MG TABCR PO (08:21)
[2019-10-26] MEDS: LOSARTAN POTASSIUM 12.5 MG TABLET PO (08:21)
[2019-10-26] MEDS: ASPIRIN 81 MG CHEWABLE TABLET PO (08:22)
[2019-10-26] MEDS: TICAGRELOR 90 MG TABLET PO ×2 (08:23→21:38)
[2019-10-26] MEDS: ZIPRASIDONE HCL 80 MG PO ×2 (08:23→17:07)
[2019-10-26] MEDS: SERTRALINE HCL 50 MG TABLET 200 MG PO (08:23)
[2019-10-26] MEDS: TOLTERODINE TARTRATE LA 4 MG CAP.ER.24H PO (08:33)
[2019-10-26] MEDS: ACETAMINOPHEN 325 MG TABLET 650 MG PO (08:41)
--- NOTE | 2019-10-26 13:33 | PM.IMPN ---
Progress Note: A&P Assessment and Plan (1) Respiratory failure with hypoxia: Qualifiers: Chronicity: acute Qualified Code(s): J96.01 - Acute respiratory failure with hypoxia Code(s): J96.91 - Respiratory failure, unspecified with hypoxia Status: Acute Assessment and Plan: O2 saturation above 90% but hyperventilating to maintain on 2 L nasal cannula on admission, so acute respiratory failure with hypoxia thought secondary to his pneumonia. Treat underlying infection with supplemental O2 and antibiotics. Wean O2 as toelrated. Check MBS. Called back to the room because the patient is having more SOB acutely. Lungs don't sound bad but hyperventilating. Repeat CXR ordered and ABG. CXR showing worsening airspace disease. pH 7.5, pCO2 24, pO2 51. COVID? Aspiration? CHF? More hypoxic so will move to IMU. Lasix IV once. Called later in the evening and informed that deidre had a code blue and informed had VFib arrest treated with shocj and Epi x1 before ROSC. Patient intubated. Cards consult. (2) Pneumonia: Qualifiers: Laterality: bilateral Lung location: upper lobe of lung Pneumonia type: due to unspecified organism Qualified Code(s): J18.9 - Pneumonia, unspecified organism Code(s): J18.9 - Pneumonia, unspecified organism Status: Acute Assessment and Plan: CXR showing infiltrates bilaterally. COVID negative. Covered with ceftriaxone and azithromycin initially but with his recent hospitalization and subsequent rehab, concern for hospital associated infection so abx changed to Zosyn and vancomycin in place of ceftriaxone. Blood cultures so far negative. (3) Ischemic cardiomyopathy: Code(s): I25.5 - Ischemic cardiomyopathy Status: Acute Assessment and Plan: Patient status post anterior myocardial infarction 10/03 with subsequent left main stent. Patient with chronic systolic CHF. He appears well compensated. Elevated troponin yo 0.127 on admission but could be residual from before or related to mild failure. No ischemic event suspected. Continue beta-carmela, ARB and p.r.n. diuretic. Will continue his Brilinta and aspirin. He is intolerant of statins (4) Parkinsons disease: Code(s): G20 - Parkinson's disease Status: Acute Assessment and Plan: Patient with a history of deep brain stimulator. Currently on Seroquel, Geodon and Remeron which have been continued. Continue all his usual medications. (5) Hypertension: Code(s): I10 - Essential (primary) hypertension Status: Acute Assessment and Plan: Blood pressure reviewed on 10/26/2019. Blood pressure well controlled with low-dose ARB and beta-carmela. Continue the same. (6) Diabetes: Qualifiers: Diabetes mellitus complication status: without complication Diabetes mellitus group home insulin use: without group home use Diabetes mellitus type: type 2 Qualified Code(s): E11.9 - Type 2 diabetes mellitus without complications Code(s): E11.9 - Type 2 diabetes mellitus without complications Status: Acute Assessment and Plan: Diet controlled DM. Glucose reviewed on 10/26/2019. Glucose well controlled. Continue to monitor periodically. (7) DVT prophylaxis: Code(s): Z29.9 - Encounter for prophylactic measures, unspecified Status: Acute Assessment and Plan: Lovenox Subjective Date/time seen: 10/26/19 13:33 Interval history: Date of visit 10/25. 73-year-old white male with PD, ischemic cardiomyopathy status post stenting to left main 10/03 presented with increasing shortness of breath found to have PNA. Assuming care. Chart reviewed. Patient had episode of nausea with vomiting this morning. He was able to tolerate a small amount lunch without symptoms. No chest pain. Shortness of breath is better. He does not wear oxygen at home. He has been up to the chair today. The breathing
[2019-10-26 14:47] LABS: Alveolar/Arterial O2 Gradient 235.3 mmHg; Base Excess ABG -2.1 mEq/l (+/-2.0); Fractional Inspired Oxygen 44 %; HCO3 ABG 19.2 mEq/l (22.0-26.0); Oxygen Content ABG 15.4 %vol (16.0-22.0); Oxygen Saturation ABG 90.5 % (95.0-100.0); Oxyhemoglobin 87.5 % THb (90.0-100.0); PCO2 ABG 24.1 mmHg (35.0-45.0); PO2 FiO2 Ratio Arterial Blood 1.16 %; Total Hemoglobin 12.5 g/dL (12.0-18.0)
[2019-10-26 14:48] LABS: Device HIGH FLOW NASAL CANN; Modified Allen's Test Pass; Site Drawn RIGHT RADIAL
--- NOTE | 2019-10-26 15:15 | PCPTNOTE ---
Held therapy session this date per RN, Pt is desatting very quickly and was a close rapid response call earlier this afternoon. Asked therapy to be held until tomorrow.
[2019-10-26 15:24] LABS: Legionella pneumophila Ag Ur Not Detected (Not Detected)
[2019-10-26] MEDS: FUROSEMIDE INJ 40 MG/4 ML VIAL IV PUSH (15:45)
--- NOTE | 2019-10-26 15:55 | PCCCNOTE ---
On 10/26/19, the student,Liz Savage, provided care and completed [facility] documentation on this patient. I have reviewed the student's documentation and agree with the findings.
--- NOTE | 2019-10-26 18:43 | PC.NURSE ---
This patient, Mayank Nuno, was transferred to ICU on 10/26/19 at 1715. Personal belongings sent with patient. Belongings list checked and signed with receiving unit. Report given to Cody. Appropriate documentation and medication sent with patient.
[2019-10-26] MEDS: RAPID SEQUENCE INTUBATION KIT 1 EACH (19:00)
--- NOTE | 2019-10-26 19:10 | P.PNCROSS_ITS ---
Event Note Event Note Event Note: see the code sheet. the patient was in v fib and he was shocked times one. icu staff in the room. ER Dr. Morelos came to the code . cpr was performed and he was given a one time dose of epinephrine iv.THe patient was intubated per me. see procedure note. vent settings per Dr. Butler. Sedation was ordered per social work therapist. Dr. Osorio was consulted. I update Dr. Carrera about the patients conditin. Will consult cardiology .
--- NOTE | 2019-10-26 19:15 | WPDPROCEDUR ---
Procedures Intubation Intubation Date: 10/26/19 Intubation Time: 18:50 A pre-procedural Time-Out was completed immediately before starting the procedure and confirmed: Patient Identification, Site, Procedure, Patient Position and the Availability of Requisite Equipment: Yes Sedative: etomidate (20) Paralytic: succinylcholine Mg given: 20 Laryngoscope: Efra ET tube size: 7.5 Tube secured depth (cm): 25 Tube secured location: teeth
--- NOTE | 2019-10-26 19:27 | PC.NURSE ---
at 1845 pt went into a v-tach then quickly went into a non perfusing v-fib, see code sheet, then xrays taken and propofol started at 1920 report given to on coming nurse
[2019-10-26] MEDS: SODIUM CHLORIDE 0.9% IV 500 ML 999 ML IV CONT (19:50)
--- NOTE | 2019-10-26 20:18 | WPDPROCEDUR ---
Procedures Central Line Placement Right Femoral: Central Line Date: 10/26/19 Central Line Time: 20:00 Discussed w/ the patient/family/POA,the placement of a central venous catheter, including its clinical necessity/indication & associated potential risks, benifits and alternatives.: Yes The patient/family/POA understand(s) and acknowledge(s) the need to proceed with central venous catheter insertion as an important element of the patient's clinical management.: Yes Consent: fullest sterile procedure maintained through out procedure Time Out Performed: Yes Patient Position: supine Provider Prep: mask, sterile gown, sterile gloves and Max. sterile barrier precautions Central line prep: Povidone-Iodine 1%, Chlorhexidine scrub and sterile full body sheet applied Local anesthesia used: lidocaine 2% Sterile Ultrasound Technique used for placement: Yes Central line lumen inserted: triple Serbian: 7 Length (cm): 16 Depth of Insertion (cm): 15 Post procedure: sutured in place, good blood return, all ports aspirated, flushed, capped, tegaderm and antimicrobial disc Patient tolerated procedure: well Complications: none Additional comments: patient tolerated well
[2019-10-26 20:23] LABS: Alveolar/Arterial O2 Gradient 438.8 mmHg; Base Excess ABG -1.4 mEq/l (+/-2.0); Fractional Inspired Oxygen 80 %; HCO3 ABG 21.7 mEq/l (22.0-26.0); Oxygen Content ABG 20.6 %vol (16.0-22.0); Oxygen Saturation ABG 97.7 % (95.0-100.0); PCO2 ABG 32.6 mmHg (35.0-45.0); PO2 ABG 97.4 mmHg (80.0-100.0); PO2 FiO2 Ratio Arterial Blood 1.22 %; Total Hemoglobin 15.2 g/dL (12.0-18.0); pH ABG 7.442 (7.350-7.450)
[2019-10-26 20:24] LABS: Arterial Blood Gas PEEP 5 cmH2O; Arterial Blood Gas Tidal Volume 500 ml; Arterial Blood Gas Vent Mode CMV; Arterial Blood Gas Ventilator rate 18 /MIN; Device VENTILATOR; Modified Allen's Test Pass; Site Drawn RIGHT RADIAL
[2019-10-26 20:29] LABS: Basophils Absolute Auto 0.1 K/mm3 (0.0-0.1); Basophils Percent Auto 0.4 % (0.2-1.2); Eosinophils Absolute Auto 0.1 K/mm3 (0-0.3); Eosinophils Percent Auto 0.5 % (0-4.4); Hematocrit 31.8 % (42.0-52.0); Hemoglobin 10.3 g/dL (14.0-18.0); Immature Granulocyte Absolute 0.29 K/mm3 (0.00-0.031); Immature Granulocyte Percent A 2.1 % (0-0.5); Lymphocytes Absolute Auto 0.56 K/mm3 (0.9-3.2); Mean Corpuscular HGB Conc 32.4 g/dl (32-36); Mean Corpuscular Hemoglobin 28.9 pg (26-34); Mean Corpuscular Volume 89.3 fl (80-100); Mean Platelet Volume 10.1 fl (7.4-10.4); Monocytes Absolute Auto 0.9 K/mm3 (0.1-0.6); Monocytes Percent Auto 6.1 % (2.6-8.5); Neutrophils Absolute Auto 12.1 K/mm3 (1.3-6.7); Neutrophils Percent Auto 86.9 % (45.5-73.1); Platelet Count Result 341 k/mm3 (150-375); Red Blood Count 3.56 M/mm3 (4.6-6.20); Red Cell Distribution Width 13.5 % (11.5-14.5); White Blood Count 13.9 K/mm3 (4.5-10.0)
[2019-10-26 20:42] LABS: Lactic Acid Reflex 2.4 mmol/L (0.7-2.1)
[2019-10-26 20:43] LABS: Alanine Aminotransferase 90 U/L (4-50); Alkaline Phosphatase 128 U/L (38-126); Aspartate Amino Transferase 126 U/L (17-59); Bilirubin,Total 0.7 mg/dL (0.2-1.3); Blood Urea Nitrogen 20 mg/dL (9-20); Calcium 8.1 mg/dL (8.4-10.2); Carbon Dioxide 25 mmol/L (22-30); Chloride 104 mmol/L (98-107); Estimated CRCL calculation 48 ml/min; Estimated Glomerular Filt Rate 46; Glucose 151 mg/dL (75-110); Magnesium 1.9 mg/dL (1.6-2.3); Phosphorus 4.7 mg/dL (2.5-4.5); Potassium 3.9 mmol/L (3.4-5.0); Sodium 136 mmol/L (137-145)
[2019-10-26 21:01] LABS: Troponin I 0.098 ng/mL (0.000-0.034)
--- NOTE | 2019-10-26 21:15 | PC.NURSE ---
Updated Dr. Rodriguez with vent settings, lab results, sedation. No new orders.
[2019-10-26] MEDS: ENOXAPARIN 40 MG/0.4 ML SYRINGE SUB-Q (21:38)
[2019-10-26] MEDS: QUEtiapine FUMARATE 25 MG TABLET PO (21:39)
[2019-10-26] MEDS: MIRTAZAPINE 7.5 MG TABLET PO (21:40)
[2019-10-26] MEDS: NOREPINEPHRINE 8 MG/D5W 250 ML 8 MG/250 ML BAG 9.4 MG IV CONT (22:00)
[2019-10-26 23:08] LABS: Troponin I 0.196 ng/mL (0.000-0.034)
[2019-10-26 23:24] LABS: Reflex Lactic Acid Yes or No Add Lactic
[2019-10-27] VITALS (39 sets, daily range): BP systolic 76–103; BP diastolic 53–65; PULSE 62–91; RESP 17–28; TEMP 35.9–37.1; O2SAT 71–100; BMI 28.7
[2019-10-27 01:28] LABS: Lactic Acid 1.3 mmol/L (0.7-2.1)
[2019-10-27 01:49] LABS: Troponin I 0.187 ng/mL (0.000-0.034)
[2019-10-27 04:19] LABS: Basophils Absolute Auto 0.1 K/mm3 (0.0-0.1); Basophils Percent Auto 0.5 % (0.2-1.2); Eosinophils Absolute Auto 0.2 K/mm3 (0-0.3); Eosinophils Percent Auto 1.2 % (0-4.4); Hematocrit 30.5 % (42.0-52.0); Hemoglobin 9.9 g/dL (14.0-18.0); Immature Granulocyte Absolute 0.24 K/mm3 (0.00-0.031); Immature Granulocyte Percent A 1.9 % (0-0.5); Lymphocytes Absolute Auto 1.29 K/mm3 (0.9-3.2); Lymphocytes Percent Auto 10.4 % (18.3-44.2); Mean Corpuscular HGB Conc 32.5 g/dl (32-36); Mean Corpuscular Hemoglobin 29.2 pg (26-34); Mean Platelet Volume 10.1 fl (7.4-10.4); Monocytes Absolute Auto 0.9 K/mm3 (0.1-0.6); Monocytes Percent Auto 7.2 % (2.6-8.5); Neutrophils Absolute Auto 9.8 K/mm3 (1.3-6.7); Neutrophils Percent Auto 78.8 % (45.5-73.1); Platelet Count Result 427 k/mm3 (150-375); Red Blood Count 3.39 M/mm3 (4.6-6.20); Red Cell Distribution Width 13.7 % (11.5-14.5); White Blood Count 12.4 K/mm3 (4.5-10.0)
[2019-10-27 04:32] LABS: Alanine Aminotransferase 91 U/L (4-50); Alkaline Phosphatase 123 U/L (38-126); Aspartate Amino Transferase 88 U/L (17-59); Bilirubin,Total 0.5 mg/dL (0.2-1.3); Blood Urea Nitrogen 26 mg/dL (9-20); Calcium 8.2 mg/dL (8.4-10.2); Carbon Dioxide 27 mmol/L (22-30); Chloride 103 mmol/L (98-107); Estimated CRCL calculation 38 ml/min; Estimated Glomerular Filt Rate 40; Glucose 166 mg/dL (75-110); Magnesium 2.2 mg/dL (1.6-2.3); Phosphorus 5.8 mg/dL (2.5-4.5); Potassium 3.8 mmol/L (3.4-5.0); Sodium 134 mmol/L (137-145)
[2019-10-27 05:12] LABS: Alveolar/Arterial O2 Gradient 188.6 mmHg; Arterial Blood Gas Vent Mode CMV; Arterial Blood Gas Ventilator rate 18 /MIN; Base Excess ABG -1.2 mEq/l (+/-2.0); Device VENTILATOR; Fractional Inspired Oxygen 45 %; HCO3 ABG 22.8 mEq/l (22.0-26.0); Modified Allen's Test Pass; Oxygen Content ABG 18.3 %vol (16.0-22.0); Oxygen Saturation ABG 97.2 % (95.0-100.0); Oxyhemoglobin 95.8 % THb (90.0-100.0); PCO2 ABG 36.1 mmHg (35.0-45.0); PO2 ABG 91.2 mmHg (80.0-100.0); PO2 FiO2 Ratio Arterial Blood 2.03 %; Site Drawn LEFT RADIAL; Total Hemoglobin 13.5 g/dL (12.0-18.0); pH ABG 7.419 (7.350-7.450)
[2019-10-27 05:13] LABS: Arterial Blood Gas PEEP 5 cmH2O; Arterial Blood Gas Tidal Volume 500 ml
[2019-10-27] MEDS: SERTRALINE HCL 50 MG TABLET 200 MG PO (09:01)
[2019-10-27] MEDS: GABAPENTIN 100 MG CAPSULE PO ×2 (09:01→11:56)
[2019-10-27] MEDS: TICAGRELOR 90 MG TABLET PO (09:03)
[2019-10-27] MEDS: ASPIRIN 81 MG CHEWABLE TABLET PO (09:03)
--- NOTE | 2019-10-27 09:06 | ECG_ITS ---
Measurements Intervals [place] Rate: 73 P: -73 ME: 150 QRS: 7 QRSD: 105 T: 113 QT: 488 QTc: 539 Interpretive Statements ECTOPIC ATRIAL RHYTHM POOR R WAVE PROGRESSION, ANTERIOR LEADS T WAVE ABNORMALITY IN ANTEROLAT/HIGH LAT LEADS- CONSIDER ISCHEMIA BASELINE WANDER- II, III, AVR, AVL, AVF ABNORMAL ECG Electronically Signed On 10-27-2019 15:17:02 CDT by Christopher Valentino D.O.
--- NOTE | 2019-10-27 09:15 | PC.NURSE ---
Pt became very agitated and busted the cuff of ET tube. New tube inserted by Dr. Rodriguez to original depth of 25cm @ lip using re-intubation tube and [id number]. Pt remained calm until succinate wore off and became very agitated again. Increased sedation to 200mcg of Fentanyl and 5mcg of Versed per verbal order from Dr. Rodriguez. Will continue to monitor and adjust as needed
--- NOTE | 2019-10-27 09:27 | PM.IMPN ---
Progress Note: A&P Assessment and Plan (1) Shock: Code(s): R57.9 - Shock, unspecified Status: Acute Assessment and Plan: Patient has developed HoTN. Unclear if shock is more related to sepsis or cardiogenic (or both). Blood pressure stable on norepinephrine. Wean norepinephrine as tolerated. (2) Respiratory failure with hypoxia: Qualifiers: Chronicity: acute Qualified Code(s): J96.01 - Acute respiratory failure with hypoxia Code(s): J96.91 - Respiratory failure, unspecified with hypoxia Status: Acute Assessment and Plan: Acute respiratory failure with hypoxia thought secondary to his pneumonia. Unclear why his symptoms worsened yesterday despite broad spectrum abx since 10/21. Aspiration? COVID (although negative COVID test on 10/21)? No PE by CTA on 10/22/19. Could have been having runs of VTach? Lasix x1 without benefit so CHF felt less likely. Now intubated and sedated. Wean vent as toelrated. (3) Ventricular tachycardia: Code(s): I47.2 - Ventricular tachycardia Status: Acute Assessment and Plan: Patietn developed VTach arrest requiring shock and Epi. Unclear if pulse was lost. Patient had ROSC. Stable overnight. not on any antiarrythmics. Cardiology following. (4) Pneumonia: Qualifiers: Laterality: bilateral Lung location: upper lobe of lung Pneumonia type: due to unspecified organism Qualified Code(s): J18.9 - Pneumonia, unspecified organism Code(s): J18.9 - Pneumonia, unspecified organism Status: Acute Assessment and Plan: CXR showing infiltrates bilaterally. COVID negative. Covered with ceftriaxone and azithromycin initially but with his recent hospitalization and subsequent rehab, concern for hospital associated infection so abx changed to Zosyn and vancomycin 10/22/19. Blood cultures so far negative. (5) Acute kidney injury: Code(s): N17.9 - Acute kidney failure, unspecified Status: Acute Assessment and Plan: Cr up to 1.7 this morning. Probably related to ATN from above. Continue to monitor creatinine values. Continue to monitor urine output as well. Zosyn and Vanco can cause YISEL as well so will adjust abx (6) Ischemic cardiomyopathy: Code(s): I25.5 - Ischemic cardiomyopathy Status: Acute Assessment and Plan: Patient status post anterior myocardial infarction 10/03 with subsequent left main stent. Patient with chronic systolic CHF. He appears well compensated. Elevated troponin to 0.127 on admission that was trending down. Repeat Trop set to 0.196 felt related to the shock. Will continue his Brilinta and aspirin. He is intolerant of statins. Cardiaology following. (7) Parkinsons disease: Code(s): G20 - Parkinson's disease Status: Acute Assessment and Plan: Patient with a history of deep brain stimulator. Currently on Seroquel, Geodon and Remeron. Some of these medications have been placed on hold. (8) Hypertension: Code(s): I10 - Essential (primary) hypertension Status: Acute Assessment and Plan: Patient now with hypotension.. Blood pressure stable but requiring norepinephrine. Will hold ARB and beta-carmela. Continue to monitor. (9) Diabetes: Qualifiers: Diabetes mellitus complication status: without complication Diabetes mellitus residential insulin use: without long term care administrator use Diabetes mellitus type: type 2 Qualified Code(s): E11.9 - Type 2 diabetes mellitus without complications Code(s): E11.9 - Type 2 diabetes mellitus without complications Status: Acute Assessment and Plan: Diet controlled DM. Glucose reviewed on 10/27/2019. Glucose well controlled. Continue to monitor. (10) DVT prophylaxis: Code(s): Z29.9 - Encounter for prophylactic measures, unspecified Status: Acute Assessment and Plan: Lovenox Subjective Date/time s
--- NOTE | 2019-10-27 09:27 | PM.PNCARD ---
Progress Note: A&P Additional Plan Continue aggressive supportive care. Dual anti-platelet therapy must be continued. Prognosis is very poor given worsening pneumonia hypoxemia requiring ventilation and triggering ventricular arrhythmias last evening David Stovall MD [facility] Subjective Date/time seen: Date of service: 10/27/19 09:27 Interval history: 73-year-old gentleman with coronary artery disease recent acute myocardial infarction with cardiogenic shock due to acute left main occlusion. This occurred several weeks ago and patient was salvaged with emergency left main stenting and Impella left ventricular support device. Patient now readmitted with multilobe pneumonia and worsening hypoxemia last evening. In this setting the patient had sustained ventricular tachycardia requiring cardioversion and intubation. No apparent evidence of acute coronary syndrome. Most likely patient has ischemic substrate due to the recent infarction in with worsening oxygenation developed ventricular tachycardia. Pattern is certainly concerning for Coronavirus he is being ruled out for that. Patient is clinically worsening with this pneumonia by oxygenation and chest x-ray appearance despite broad-spectrum antibiotics Currently intubated in ICU room 4. Exam Const: Other: Sedated and on Ventilator HENMT: Mouth: Yes moist mucous membranes Eyes: Sclera: sclerae normal Neck: Neck: supple Thyroid: thyroid normal Other: No venous distention Resp: Other: Coarse rhonchi Cardio: Rate: regular rate Rhythm: regular rhythm GI: Auscultation: normal bowel sounds Skin: General skin exam: normal color Neuro: Other: Intubated and sedated Objective Data Vital Signs Vital Signs: Vital Signs - 24 hr 10/26/19 13:58 10/26/19 14:00 10/26/19 14:04 Temperature 36.4 C Pulse Rate 79 74 79 Respiratory Rate 20 20 20 Blood Pressure 130/64 Pulse Oximetry 90 10/26/19 16:30 10/26/19 19:24 10/26/19 19:29 Temperature Pulse Rate 80 110 H 103 H Respiratory Rate 29 H 35 H Blood Pressure 156/132 H 72/49 L Pulse Oximetry 100 100 10/26/19 19:31 10/26/19 19:36 10/26/19 19:41 Temperature Pulse Rate 102 H 98 95 Respiratory Rate 34 H 30 H 26 H Blood Pressure 64/46 L 65/50 L 87/59 L Pulse Oximetry 99 100 98 10/26/19 19:46 10/26/19 19:51 10/26/19 19:56 Temperature Pulse Rate 101 H 98 95 Respiratory Rate 28 H 33 H 30 H Blood Pressure 114/73 70/47 L 93/60 L Pulse Oximetry 99 99 97 10/26/19 20:00 10/26/19 20:01 10/26/19 20:06 Temperature Pulse Rate 94 92 95 Respiratory Rate 28 H 24 H Blood Pressure 93/67 L 95/61 L Pulse Oximetry 97 97 10/26/19 20:11 10/26/19 20:15 10/26/19 20:16 Temperature Pulse Rate 97 93 93 Respiratory Rate 34 H 28 H 25 H Blood Pressure 113/69 98/61 L Pulse Oximetry 96 99 98 10/26/19 20:31 10/26/19 20:45 10/26/19 20:46 Temperature Pulse Rate 97 91 91 Respiratory Rate 28 H 18 23 H Blood Pressure 118/69 102/65 Pulse Oximetry 98 98 98 10/26/19 21:01 10/26/19 21:16 10/26/19 21:31 Temperature 37.3 C Pulse Rate 90 87 83 Respiratory Rate 18 22 H 19 Blood Pressure 88/60 L 88/58 L 90/59 L Pulse Oximetry 98 99 99 10/26/19 21:46 10/26/19 21:57 10/26/19 22:00 Temperature Pulse Rate 83 83 70 Respiratory Rate 19 18 22 H Blood Pressure 85/60 L 78/56 L Pulse Oximetry 98 95 10/26/19 22:01 10/26/19 22:10 10/26/19 22:12 Temperature Pulse Rate 83 77 78 Respiratory Rate 23 H 18 Blood Pressure 78/56 L 81/66 L 81/56 L Pulse Oximetry 96 97 10/26/19 22:14 10/26/19 22:16 10/26/19 22:31 Temperature Pulse Rate 77 75 72 Respiratory Rate 18 18 18 Blood Pressure 95/61 L 101/62 Pulse Oximetry 98 97 10/26/19 22:46 10/26/19 23:01 10/26/19 23:27 Temperature Pulse Rate 72 74 69 Respiratory Rate 18 19 18 Blood Pressure 102/60 89/58 L Pulse Oximetry 97 96 97 10/26/19 23:32 10/27/19 00:00 10/27/19 00:30 Temperature 36.6 C Pulse Rate
--- NOTE | 2019-10-27 09:41 | WPDCNINT ---
Assessment and Plan Assessment and plan (1) Respiratory failure with hypoxia: Qualifiers: Chronicity: acute Qualified Code(s): J96.01 - Acute respiratory failure with hypoxia Code(s): J96.91 - Respiratory failure, unspecified with hypoxia Status: Acute Assessment and Plan: Patient was intubated after V-tach/VFib arrest, likely secondary to hypoxia from worsening infiltrates/pneumonia -ETT was exchanged over a tube changer on 10/27/2019 as patient bed his ETT cuff and had a he was air leak and was not getting his tidal volumes. -currently on 45% FiO2, peep of 5, chest x-ray shows worsening bilateral infiltrates -COVID-19 test was negative on 10/22/2019, given worsening bilateral infiltrates on the chest x-ray SARS-CoV-2 PCR has been obtained and pending from 10/26/2019 -sedated with fentanyl and Versed infusion, maintain RASS of 0 to -2. Daily sedation vacation (2) Shock: Code(s): R57.9 - Shock, unspecified Status: Acute Assessment and Plan: Likely secondary to worsening infiltrate/pneumonia -on Levophed, maintain mean arterial pressures > 65 mmHg -on vancomycin and Zosyn, given his worsening creatinine and, will switch Zosyn to cefepime -10/26/2019 blood and sputum cultures have been obtained and pending -10/22/2019 blood cultures were negative x2 (3) Ventricular tachycardia: Code(s): I47.2 - Ventricular tachycardia Status: Acute Assessment and Plan: Patient with V-tach/VFib arrest on 10/26/2019 evening requiring shock x1 and epinephrine x1. Patient ROSC, has been stable overnight without any need for antiarrhythmics -cardiology has been following the patient and feels further worsening pneumonia/hypoxemia triggered to ventricular arrhythmias -continue to monitor (4) Ischemic cardiomyopathy: Code(s): I25.5 - Ischemic cardiomyopathy Status: Acute Assessment and Plan: Ischemic cardiomyopathy with EF of 20-25%. Will have to hold cardiac medications secondary to shock -continue Brilinta and aspirin (5) Acute kidney injury: Code(s): N17.9 - Acute kidney failure, unspecified Status: Acute Assessment and Plan: Likely related to V-tach/VFib arrest -creatinine up to 1.7 this morning as compared to 1.1 on admission -urine output has been adequate, continue to monitor renal function, electrolytes and urine output (6) Diabetes: Qualifiers: Diabetes mellitus type: type 2 Diabetes mellitus mcfp insulin use: without mcfp use Diabetes mellitus complication status: without complication Qualified Code(s): E11.9 - Type 2 diabetes mellitus without complications Code(s): E11.9 - Type 2 diabetes mellitus without complications Status: Acute Assessment and Plan: Continue Accu-Cheks and sliding scale insulin (7) DVT prophylaxis: Code(s): Z29.9 - Encounter for prophylactic measures, unspecified Status: Acute Assessment and Plan: Continue Lovenox (8) Dietary counseling and surveillance: Code(s): Z71.3 - Dietary counseling and surveillance Status: Acute Assessment and Plan: Will start tube feeds Additional Plan Left a message for Sharita Gonzalez (sister) Code status: Full code Critical care time spent: 49 minutes Due to a high probability of clinically significant, life threatening deterioration, the patient required my highest level of preparedness to intervene emergently and I personally spent this critical care time directly and personally managing the patient. This critical care time included obtaining a history; examining the patient; pulse oximetry; ordering and review of studies; arranging urgent treatment with development of a management plan; evaluation of patient's response to treatment; frequent reassessment; and discussions with other providers. It was exclusive of separately billable procedures and treating other patients and teaching time. Please see Asses
--- NOTE | 2019-10-27 11:04 | PCDIET ---
MD ordered to start tube feedings at lower goal rate of 40mL/hr Glucerna 1.2. Recommend Pro-Stat flush TID for total of 1356kcal, 97g protein and 708mL free water, given 22 hour daily infusion. Agree with 30mL water flush every 4 hours.
[2019-10-27] MEDS: PANTOPRAZOLE SODIUM IV 40 MG VIAL IV PUSH (11:55)
[2019-10-27 12:10] LABS: Glucose Point of Care 109 (65-105)
[2019-10-27 13:29] LABS: SARS-CoV-2 RNA PCR Negative
--- NOTE | 2019-10-27 14:31 | WPDPROCEDUR ---
Procedures Intubation Intubation Date: 10/27/19 Sedative: etomidate Paralytic: succinylcholine Laryngoscope: fiber optic video scope Assist device used: fiber optic device ET tube size: 8 Tube secured depth (cm): 25 Tube secured location: lips Tube placement confirmation: visualized tube passing through cords, equal breath sounds bilaterally, no breath sounds over epigastrium and confirmation by capnometry Patient tolerated procedure: well Intubation complications: none Additional comments: Pt bit his cuff on the ETT tube and had a large air leak and was not getting his tidal volumes. Decided to change the ETT tube using a tube exchanger. Procedure went smoothly, patient tolerated the procedure well, no complications were noted
[2019-10-27] MEDS: MORPHINE SULFATE 4 MG/ML INJ 5 MG IV PUSH (16:29)
[2019-10-27] MEDS: MORPHINE SULFATE 2 MG/ML INJ IV PUSH ×2 (17:31→18:09)
--- NOTE | 2019-10-27 22:03 | PC.NURSE ---
This patient, Mayank Nuno, was admitted to Medical Room 246-. Patient/family oriented to hospital policies and general routines including ID bracelet, bed and alarms, visiting hours, pain management, procedures, bathroom and other care routines, personal items, smoking policy, room service/diet, and visiting hours. Valuables list has been completed. Information on how to activate the Rapid Response Team has been discussed. Patient/Family are encouraged to report perceived risks to care and to ask questions if they do not understand what they are told or what they should do.
--- NOTE | 2019-10-28 02:47 | PC.NURSE ---
Called to pt room at 0245 by nurse aidestelita Gonzales. Pt found without pulse or respirations. forest nursery supervisor notifed of Pt expiration.
--- NOTE | 2019-10-28 08:28 | PM.DDS ---
Discharge Sum: Prov Provider Primary care physician: LISA,BENIGNO Beverly MD Admitting provider: Josue Mukherjee MD Consults: 10/22/19 06:30 Consult to Physician Routine Comment: Consulting Provider: Albina Hutchison Reason for consultation: acute on chronic CHF Has provider been notified: Yes 10/26/19 Consult to Physician Routine Comment: Consulting Provider: Erich Rodriguez callisthenics instructor/MD group to consult: dr lora Reason for consultation: v fib Has provider been notified: Yes Discharge Sum: Diag Contributing Factors (1) Shock: (2) Respiratory failure with hypoxia: (3) Ventricular tachycardia: (4) Pneumonia: (5) Acute kidney injury: (6) Ischemic cardiomyopathy: (7) Parkinsons disease: (8) Hypertension: (9) Diabetes: (10) DVT prophylaxis: Discharge Sum: Summary Date and Time Date of admission: 10/22/19 06:29 Date of : 10/28/19 Summary Details: 73yo male with PD, ischemic cardiomyopathy, CAD status post stenting to left main 10/03 presented with increasing shortness of breath found to have PNA that developed into respiratory failure. CXR showing infiltrates bilaterally. COVID negative. Covered with ceftriaxone and azithromycin initially but with his recent hospitalization and subsequent rehab, thee was concern for hospital acquired infection so abx changed to Zosyn and vancomycin. Cultures remained negative. Patient had worsening hypoxia develop the morning of 10/26/19. CXR looked worse so patient moved to IMU (boarded in ICU) for possible COVID. Patient developed VTach arrest and respiratory failure. Code Blue was called and patient may have lost a pulse. He was shocked x1 and Epi x1. Patietn intubated and stabilized. Pressors started. Family notified of the change and they felt that the patient would not want this type of aggressive treatment. They wished to make the patient comfortable. The family wre at bedside late afternoon of 10/26 and made the desicion to withdraw care. Comfort measures started and patient was taken of pressors and extubated. Patient passed in the morning on 10/28/19. Additional Data Attending physician: Kalen Carrrea MD
== END 2019-10-28 02:45 | disposition expired | DRG 208 ==
LOC: ANHED 04:53 → ANHICU 06:42 → ANH2MED 10-23 19:27 → ANHICU 10-27 15:33 → ANH2MED 10-28 07:31 → ANHICU 10-29 15:32
PROVIDERS: Internal Medicine; Nurse Practitioner; Admitting Provider Family Medicine; Emergency Provider Emergency Medicine; PCP Family Medicine; Visit Provider Internal Medicine
DX: J96.01 Acute respiratory failure with hypoxia (principal); J18.9 Pneumonia, unspecified organism; I21.3 ST elevation (STEMI) myocardial infarction of unspecified site; N17.0 Acute kidney failure with tubular necrosis; R57.9 Shock, unspecified; I50.22 Chronic systolic (congestive) heart failure; I47.2 Ventricular tachycardia; Z20.828 Contact with and (suspected) exposure to other viral communicable diseases; G20 Parkinson's disease; E11.9 Type 2 diabetes mellitus without complications; Z66 Do not resuscitate; I49.01 Ventricular fibrillation; I25.10 Atherosclerotic heart disease of native coronary artery without angina pectoris; I11.0 Hypertensive heart disease with heart failure; Z95.5 Presence of coronary angioplasty implant and graft; Z87.891 Personal history of nicotine dependence; Z51.5 Encounter for palliative care
CPT/HCPCS: 31500; 36415; 36600; 71045; 71046; 71275; 80048; 80053; 80202; 81003; 82375; 82565; 82728; 82805; 83050; 83605; 83615; 83735; 83880; 84100; 84145; 84484; 85025; 85610; 85730; 87040; 87070; 87205; 87449; 87635; 87899; 93005; 94002; 94640; 96365; 96375; 97110; 97116; 97161; 97165; 97530; 99285; A9270; C1751; C9113; C9803; J0171; J0330; J0456; J0692; J0696; J1650; J1940; J2060; J2250; J2270; J2543; J2704; J3010; J3370; J7030; J7040; Q9967; U0003